=== PATIENT | male | born 1970 | race Hispanic/Latino ===

== ENCOUNTER 2025-01-29 15:47 | Inpatient (IN) | payer SELFPAY ==
[~2025-01-29] VITALS: Ht 185.4 cm; Wt 79.6 kg
--- NOTE | 2025-01-29 16:44 | ERN ---
General Chief Complaint: Wound Check Stated Complaint: BLOODY INJURY TO TOE Time Seen by MD: 15:54 Source: patient History of Present Illness Initial Comments Patient is a 54-year-old gentleman coming in complaining of right foot great toe wound. Per patient he has a history of diabetes coming in for further evaluation of right toe pain. Along with the pain patient has been having inflammation and drainage to that toe. Allergies: Coded Allergies: No Known Allergies (Unverified Allergy, Unknown, 01/29/25) Past Medical History Past Medical History: Diabetes-Type II, High Cholesterol, Hypertension Medical History Other: NON COMPLIANT W/ MEDS Past Surgical History: None Surgical History Other: TOE AMPUTATION ROS Dictation CONSTITUTIONAL: No chills, no fever, no weakness, no diaphoresis, no malaise. HEAD/FACE: No signs of trauma. EENT: No eye pain, no blurred vision, no tearing, no double vision, no ear pain, no ear discharge, no nose pain, no nasal congestion, no throat pain, no throat swelling, no mouth pain. RESPIRATORY: No cough, no orthopnea, no SOB, no stridor, no wheezing. CARDIOVASCULAR: No chest pain, no edema, no palpitations, no syncope. GASTROINTESTINAL/ABDOMINAL: No abdominal pain, no constipation, no diarrhea, no nausea, no vomiting. GENITOURINARY: No abnormal discharge, no dysuria, no frequent urination, no hematuria. No complaints of pain in the genitals. MUSCULOSKELETAL: No back pain, no gout, no joint pain, no joint swelling, no muscle pain, no muscle stiffness, no neck pain. INTEGUMENTARY: No change in color, no change in hair/nails, no dryness, no lesion, no lumps, no rash. NEUROLOGICAL/PSYCH: No anxiety, not depressed, no emotional problem, no headache, no numbness, no pre-existing deficit, no history of seizures, no tremors, no weakness. HEMATOLOGIC/LYMPHATIC: Not anemic, no history of blood clots, no apparent bleeding, no bruising, glands not swollen. All Systems Negative, Except as Noted. Physical Exam Physical Exam Dictation VITAL SIGNS: Reviewed. GENERAL APPEARANCE: Alert, oriented x3, no acute distress, obese. HEAD AND FACE: Non-traumatic. EYES: PERRL, pink conjunctivas, eyelid no trauma, anterior chamber clear. EARS: Pinnas intact and no signs of trauma or erythema. Ear canals clear and no discharge. TMs no erythema. NOSE: No discharge, no bleeding. OROPHARYNX: Mouth normal, teeth no caries, tongue pink. Pharynx clear, no erythema. Tonsils no exudates, no abscesses noted. Mucous membrane moist. NECK: Supple, non-tender, no thyromegaly, no masses, no JVD, no bruits. BREAST: Deferred. CHEST: No tenderness, no crepitus, no paradoxical movement, no retractions. LUNGS: Clear, well-ventilated, symmetric, no rales, no wheezing, no rhonchi, no stridor, good breath sounds bilaterally. HEART: Regular rate, regular rhythm, no murmur, no gallops. VASCULAR: No peripheral edema. ABDOMEN: Soft, positive bowel sounds, nondistended, no guarding, nontender, no rebound, no masses no hepatomegaly, no splenomegaly, no Ramos's sign, no hernias. RECTAL: Deferred. GENITAL: Deferred. NEUROLOGICAL: Normal speech, gross motor function intact, gross sensory function intact. MUSCULOSKELETAL: Neck nontender, full range of motion, back nontender, full range of motion. EXTREMITIES: Nontender, full range of motion. SKIN: Color pink, dry, no turgor, no rash, no lacerations, no abrasions, no contusions. LYMPHATICS: Deferred. Results Laboratory and Microbiology Lab and Micro Result Laboratory Tests Test 01/29/25 16:55 White Blood Count 14.4 K/uL (4.8-10.8) H Red Blood Count 4.06 MIL/uL (4.50-6.20) L Hemoglobin 12.3 g/dL (14.0-18.0) L Hematocrit 35.0 % (42-54) L Mean Corpuscular Volume 86.2 fL (79-99) Mean Corpuscular Hemoglobin 30.3 pg (27.0-33.0) Mean Corpuscular Hemoglobin Concent 35.1 g/dL (32.0-36.0) Red Cell Distribution Width 12.6 % (11.0-15.5) Platelet Count 470 K/uL (130-400) H Mean Platelet Volume 10.1 fL (7.5-10.5) Immature Granulocyte % (Auto) 0.7 % (0-1) Neutrophils (%) (Auto) 71.1 % (40.0-77.0) Lymphocytes (%) (Auto) 18.2 % (21.0-51.0) L Monocytes (%) (Auto) 8.2 % (3.0-13.0) Eosinophils (%) (Auto) 1.0 % (0.0-8.0) Basophils (%) (Auto) 0.8 % (0.0-5.0) Neutrophils # (Auto) 10.2 K/uL (1.8-7.7) H Lymphocytes # (Auto) 2.6 K/uL (1.0-4.8) Monocytes # (Auto) 1.2 K/uL (0.1-1.0) H Eosinophils # (Auto) 0.15 K/uL (0.00-0.70) Basophils # (Auto) 0.12 K/uL (0.00-0.20) Absolute Immature Granulocyte (auto 0.10 K/uL (0-1) Nucleated Red Blood Cells 0.0 % (0.0-0.19) Labs Reviewed?: Yes EKG/XRAY/US/CT/MRI X-RAY Comment X-ray right great toe-NAD MDM MDM: Differential diagnosis: Osteomyelitis of the right great toe, cellulitis, history of diabetes mellitus Rationale: Tests considered and ordered secondary to shared decision making include: labs, ECG and radiology Previous outside records reviewed: Old ER visits. Risk of complication and/or morbidity or mortality of patient management: None Medications-Per medication reconciliation Need for hospitalization: Patient does meet criteria for hospitalization. Need for emergency major/minor surgery: No There are no social concerns with this patient. Prescription drug management Prescriptions will include symptomatic care Patient's prior external medical records from other ER visits were reviewed by me as indicated. Prior testing and results from previous visits were reviewed. Prior tests were taken into account with medical decision making and resource utilization, independent historian/historians were used to obtain complete medical history. I independently interpreted the test that were performed, results were reviewed by me and considered findings on radiology if ordered. Medical management and examination interpretation discussions were had by me with other qualified healthcare professionals as indicated for the patient's care. Patient is a 54-year-old gentleman coming in to be evaluated for right great toe infection. Patient is a diabetic. Due to the infection in the right great toe in his history patient will be admitted under the care of hospitalist group for ongoing treatment. ED Course Orders Procedure Category Date Status Time Cbc With Differential LAB 01/29/25 In Process 16:28 Urinalysis Profile LAB 01/29/25 Logged 16:28 Basic Metabolic Panel LAB 01/29/25 In Process 16:28 Toe(S) 2+Vws Rt RAD 01/29/25 Taken 16:28 Erythrocyte LAB 01/29/25 In Process Sedimentation Rate 16:28 Vancomycin 1g/250ml PHA 01/29/25 In Process Kit (Vancomycin 1g/2 17:30 Zosyn 3.375gm+Ns 50ml PHA 01/29/25 In Process (Zosyn 3.375gm+Ns 21:00 Aerobic Culture TISHA 01/29/25 Logged 17:17 Anaerobic Culture TISHA 01/29/25 Logged 17:17 Current Medications Medications (Trade) Dose Ordered Sig/Eva Route PRN Reason Start Time Stop Time Status Last Admin Dose Admin Piperacillin Sod/ Tazobactam Sod (Zosyn 3.375gm+NS 50ml) 3.375 gm ZOSY12 IV 01/29/25 21:00 02/08/25 20:59 Vancomycin HCl (Vancomycin 1g/ 250ml Kit) 1 gm ONCE IV 01/29/25 17:30 01/29/25 23:59 Vital Signs Date Time Temp Pulse Resp B/P (MAP) Pulse Ox O2 Delivery O2 Flow Rate FiO2 01/29/25 15:53 98.4 87 16 175/96 97 Room Air 0 DX & DISP Disposition: Inpatient Decision to Admit Time: 17:38 Departure Impression: Primary Impression: Osteomyelitis of great toe of right foot Additional Impressions: Cellulitis, Diabetes mellitus Condition: Stable Referrals: SELF,REFERRAL (PCP) DANIEL WILKINS MD Jan 29, 2025 16:44
[2025-01-29 17:06] LABS: BASOPHILS # (AUTO) 0.12 K/uL (0.00-0.20); BASOPHILS % (AUTO) 0.8 % (0.0-5.0); EOSINOPHILS # (AUTO) 0.15 K/uL (0.00-0.70); LYMPHOCYTES # (AUTO) 2.6 K/uL (1.0-4.8); LYMPHOCYTES % (AUTO) 18.2 % (21.0-51.0); MEAN CORPUSCULAR HEMOGLOBIN 30.3 pg (27.0-33.0); MEAN CORPUSCULAR HGB CONC 35.1 g/dL (32.0-36.0); MEAN CORPUSCULAR VOLUME 86.2 fL (79-99); MONOCYTES # (AUTO) 1.2 K/uL (0.1-1.0); MONOCYTES % (AUTO) 8.2 % (3.0-13.0); NEUTROPHILS # (AUTO) 10.2 K/uL (1.8-7.7); NEUTROPHILS % (AUTO) 71.1 % (40.0-77.0); PLATELET COUNT (AUTO) 470 K/uL (130-400); RED BLOOD CELL COUNT(AUTO) 4.06 MIL/uL (4.50-6.20); RED CELL DISTRIBUTION WIDTH 12.6 % (11.0-15.5); WHITE BLOOD COUNT (AUTO) 14.4 K/uL (4.8-10.8)
[2025-01-29 17:32] LABS: CREATININE 1.4 mg/dL (0.5-1.3); POTASSIUM 3.4 mmol/L (3.5-5.1)
[2025-01-29] MEDS ORDERED: MAG/ALUM/SIMETH 30 ML UDCUP PO PRN (18:00)
[2025-01-29] MEDS ORDERED: acetaMINOPHEN 325 MG TAB PO PRN ×3 (18:00)
[2025-01-29] MEDS ORDERED: PoTASSium chloRIDE 20MEQ/100ML 100 ML IV PRN (18:00)
[2025-01-29] MEDS: VANCOMYCIN 1G/250ML KIT 250 ML IV SCH (18:00)
[2025-01-29] MEDS ORDERED: DiphenhydrAMINE HCL 50 MG/ML VIAL IV PRN (18:00)
[2025-01-29] MEDS ORDERED: ZOLPidem TARTrate 5 MG TAB PO PRN (18:00)
[2025-01-29] MEDS ORDERED: GLUCAGON 1MG KIT 1 MG ML IM PRN ×2 (18:00→20:00)
[2025-01-29] MEDS ORDERED: DEXTROSE 50%-WATER 50 ML DISP.SYRIN IV PRN ×2 (18:00→20:00)
[2025-01-29] MEDS ORDERED: NITROGLYCERIN 0.4 MG SL TAB SL PRN (18:00)
[2025-01-29] MEDS ORDERED: LACTULOSE 20 GM/30 ML UDCUP PO PRN (18:00)
[2025-01-29] MEDS ORDERED: guaiFENesin-DM 200/20MG 10ML PO PRN (18:00)
[2025-01-29] MEDS ORDERED: FAMOTIDINE 20MG VIAL IV PRN (18:00)
[2025-01-29] MEDS ORDERED: ondanSETRON 4MG INJ IV PRN (18:00)
[2025-01-29] MEDS ORDERED: PoTASSium chl 10% ELIXIR 20MEQ 20 MEQ/15 ML UDCUP PO PRN (18:00)
[2025-01-29 18:17] LABS: ERYTHROCYTE SEDIMENTATION RATE 112 MM/HR (0-20)
--- NOTE | 2025-01-29 18:20 | NUR ---
PT JUST PLACED IN ED BED 2 FROM WAITING ROOM
--- NOTE | 2025-01-29 18:44 | HP ---
[facility] HISTORY AND PHYSICAL Date of Service: Jan 29, 2025 Time of Service: 18:44 PCP: Self-referral HISTORY OF PRESENT ILLNESS: This is a 54-year-old male with past medical history of diabetes, high cholesterol ,hypertension and non medical compliance who presents to the ED for complaints of right great toe open wound which started 3 days ago.As per patient it started to inflame at the side of his toe nail and he was applying Neosporin ointment for 2 days and today when he uncovered it he was so surprised to notice that it is draining pus,red and inflamed and his foot started to swell.Patient reports he has not been taking any medications for almost 8 months now and he has not been to a doctor as well.Patient denies any trauma,injury or insect bite on his right great toe.Patient also reports he has history of right great toe partial amputation. Seen and examined patient in the ER awake,alert and coerent.Patient denies pain at this time.Patient denies fever,chills,nausea and vomiting. Vital signs temperature 98.4, heart rate 87, blood pressure 175/96 saturation 97% on room air. Labs: WBC 14 , neutrophils 71, hemoglobin 12, hematocrit 35 platelet count 470. Sodium 135, potassium 3.4, chloride 98, BUN 19, creatinine 1.4, GFR 60 glucose 486. Venous Doppler bilateral lower extremities result revealed no evidence of DVT. Chest x-ray result revealed mild bilateral pulmonary infiltrates are seen may be related to mild pulmonary vascular congestion with possible superimposed pneumonitis. Arterial Doppler to bilateral lower extremities result revealed atherosclerotic disease. Abnormal monophasic arterial waveforms are seen in the bilateral posterior tibial and right anterior tibia and dorsalis pedal arteries. X-ray of the right revealed there is no acute displaced fracture or dislocation. There is soft tissue swelling evaluation for osteomyelitis is limited with radiographs. Degenerative changes are seen. We will admit patient for further medical management. REVIEW OF SYSTEMS CONSTITUTIONAL: Denies fevers, chills, or night sweats. No unintentional weight loss reported. NEUROLOGICAL: Denies headache, amaurosis fugax, motor weakness, sensory deficit, vertigo/spinning sensation, gait abnormalities, or tremors. ENT: No hearing loss, otalgia, otorrhea, rhinitis, rhinorrhea, hoarseness, or sore throat. CARDIOVASCULAR: Denies any exertional angina, dyspnea on exertion, orthopnea, paroxysmal nocturnal dyspnea, palpitations, life-threatening arrhythmias, claudication. PULMONARY: Denies any shortness of breath, cough, phlegm/sputum, hemoptysis, pleuritic chest pain. SLEEP: Denies morning headaches, daytime somnolence or napping. Denies difficulty falling asleep, staying asleep, waking from sleep. Denies knowledge of snoring. GASTROINTESTINAL: Denies any type of dysphagia to either liquids or solids. Denies nausea, vomiting, pyrosis, early satiety, abdominal pain, diarrhea, constipation, or changes in stool consistency or caliber. Denies coffee-ground e mesis, hematemesis, hematochezia, or melanotic stools. GENITOURINARY: Denies frequency, urgency, nocturia, hematuria or incontinence (Storage/Irritative symptoms.) Low urinary stream, straining to void, urinary intermittency or hesitancy, splitting of the voiding stream, terminal dribbling. ENDOCRINOLOGIC: Denies polyuria, polydipsia, polyphagia or heat/cold intolerances. HEMATOLOGIC: Denies thrombophilia/previous clots, or coagulopathy/bleeding disorders. ONCOLOGIC: Denies personal history of malignancy. DERMATOLOGIC: Denies rashes or pruritus. PSYCHIATRIC: Denies any suicidal or homicidal ideation. Denies hallucinations. PAST MEDICAL HISTORY: [ Diabetes, hyperlipidemia, hypertension and medical noncompliance ] PAST SURGICAL HISTORY: [Left great toe partial amputation ] PAST SOCIAL HISTORY: [Patient lives alone. Patient admits to smoking four cigarettes per day and using cocaine last use one week ago patient denies and marijuana use ] FAMILY HISTORY: [ Noncontributory ] Coded Allergies: No Known Allergies (Unverified Allergy, Unknown, 01/29/25) PHYSICAL EXAM GENERAL APPEARANCE: The patient is awake, alert, and oriented, in no acute cardiopulmonary distress. NEUROLOGICAL: Cranial nerves II-XII grossly intact. Motor is 5/5 in bilateral upper and lower extremities proximal to distal. No sensory deficits. HEENT: Face is symmetric. Pupils are equal and reactive. Extraocular movements are intact. NECK: Supple. No JVD. No thyromegaly. No submental, submandibular, pre- /postauricular, occipital or supraclavicular lymphadenopathy. CHEST: Normal chest expansion. No Telemetry. LUNGS: Absence of any rales, rhonchi or any wheezing. CARDIOVASCULAR: Regular. S1 and S2 normal. No appreciable rubs, murmurs or gallops. ABDOMEN: Soft, nontender, and nondistended. There is no rebound, voluntary guarding, or rigidity. : Deferred. No Pinedo. EXTREMITIES: Edema to right foot No clubbing. Good capillary refill. SKIN: Open wound ulcer to right great toe Vital Sign (Last 24 Hours) 01/29/25 15:53 Temp 98.4 Pulse 87 Resp 16 B/P (MAP) 175/96 Pulse Ox 97 O2 Delivery Room Air O2 Flow Rate 0 LABS: Laboratory: Test 01/29/25 16:55 Range/Units White Blood Count 14.4 H 4.8-10.8 K/uL Red Blood Count 4.06 L 4.50-6.20 MIL/uL Hemoglobin 12.3 L 14.0-18.0 g/dL Hematocrit 35.0 L 42-54 % Mean Corpuscular Volume 86.2 79-99 fL Mean Corpuscular Hemoglobin 30.3 27.0-33.0 pg Mean Corpuscular Hemoglobin Concent 35.1 32.0-36.0 g/dL Red Cell Distribution Width 12.6 11.0-15.5 % Platelet Count 470 H 130-400 K/uL Mean Platelet Volume 10.1 7.5-10.5 fL Immature Granulocyte % (Auto) 0.7 0-1 % Neutrophils (%) (Auto) 71.1 40.0-77.0 % Lymphocytes (%) (Auto) 18.2 L 21.0-51.0 % Monocytes (%) (Auto) 8.2 3.0-13.0 % Eosinophils (%) (Auto) 1.0 0.0-8.0 % Basophils (%) (Auto) 0.8 0.0-5.0 % Neutrophils # (Auto) 10.2 H 1.8-7.7 K/uL Lymphocytes # (Auto) 2.6 1.0-4.8 K/uL Monocytes # (Auto) 1.2 H 0.1-1.0 K/uL Eosinophils # (Auto) 0.15 0.00-0.70 K/uL Basophils # (Auto) 0.12 0.00-0.20 K/uL Absolute Immature Granulocyte (auto 0.10 0-1 K/uL Nucleated Red Blood Cells 0.0 0.0-0.19 % Erythrocyte Sedimentation Rate 112 H 0-20 MM/HR Sodium Level 135 L 136-145 mmol/L Potassium Level 3.4 L 3.5-5.1 mmol/L Chloride Level 98 L 101-111 mmol/L Carbon Dioxide Level 32 21-32 mmol/L Blood Urea Nitrogen 19 H 7-18 mg/dL Creatinine 1.4 H 0.5-1.3 mg/dL Glomerular Filtration Rate Calc 60 >90 mL/min Random Glucose 486 *H 70-105 mg/dL Total Calcium 8.6 8.5-10.1 mg/dL Current Medications Medications (Trade) Dose Ordered Sig/Eva Route PRN Reason Start Time Stop Time Status Last Admin Dose Admin Acetaminophen (TYLenol 325MG TAB) 650 mg Q4H PRN PO MILD PAIN (1-3) 01/29/25 18:00 02/28/25 17:59 Acetaminophen (TYLenol 325MG TAB) 650 mg Q6H PRN PO MILD PAIN (1-3) 01/29/25 18:00 02/28/25 17:59 Acetaminophen (TYLenol 325MG TAB) 650 mg Q6H PRN PO TEMPERATURE GREATER THAN 101.5 01/29/25 18:00 02/28/25 17:59 Al Hydroxide/Mg Hydroxide (MAALox PLUS 30ML) 30 ml Q6H PRN PO INDIGESTION 01/29/25 18:00 02/28/25 17:59 Dextrose (D50w) 50 ml AD PRN IV HYPOGLYCEMIA PROTOCOL 01/29/25 18:00 02/28/25 17:59 Diphenhydramine HCl (BENAdryl INJ) 25 mg Q6H PRN IV SEVERE ITCHING/RASH 01/29/25 18:00 02/28/25 17:59 Famotidine (Pepcid 20mg Vial) 20 mg BID IV 01/29/25 21:00 02/28/25 20:59 Famotidine (Pepcid 20mg Vial) 20 mg BID PRN IV NAUSEA/VOMITING 01/29/25 18:00 02/28/25 17:59 Glucagon (Glucagon 1mg Kit) 1 mg AD PRN IM HYPOGLYCEMIA PROTOCOL 01/29/25 18:00 02/28/25 17:59 Guaifenesin/ Dextromethorphan (RobiTUSSin DM 200/20MG 10ML) 10 ml Q4H PRN PO COUGH 01/29/25 18:00 02/28/25 17:59 Heparin Sodium (Porcine) (HEParin 5,000 UNIT VIAL) 5,000 unit BID SQ 01/29/25 21:00 02/28/25 20:59 Hydralazine HCl (APRESOLine 20MG INJ) 10 mg Q6H PRN IV For:SBP above 160;DBP above 90 01/29/25 18:00 02/28/25 17:59 Insulin Human Regular (humuLIN R 100 UNIT/ML 3ML) INSULIN SLIDING SCAL... ACHS SQ 01/29/25 21:00 02/28/25 20:59 Ketorolac Tromethamine (toRADol) 15 mg Q8H PRN IV MODERATE PAIN (4-6) 01/29/25 18:00 02/03/25 17:59 Lactulose (Constulose 20gm/ 30ml Udcup) 20 gm BID PRN PO CONSTIPATION 01/29/25 18:00 02/28/25 17:59 Magnesium Sulfate 50 ml @ 0 mls/hr PROTOCOL PRN IV OTHER [SEE ORDER COMMENTS] 01/29/25 18:00 02/28/25 17:59 Morphine Sulfate (morPHINE 2MG SYG) 1 mg Q4H PRN IVP SEVERE PAIN (7-10) 01/29/25 18:00 02/05/25 17:59 Nitroglycerin (Nitrostat) 0.4 mg PROTOCOL PRN SL CHEST PAIN 01/29/25 18:00 02/28/25 17:59 Ondansetron HCl (zoFRAN 4MG INJ) 4 mg Q6H PRN IV NAUSEA/VOMITING 01/29/25 18:00 02/28/25 17:59 Oxycodone/ Acetaminophen (perCOCET) 1 tab Q6H PRN PO SEVERE PAIN (7-10) 01/29/25 18:00 02/05/25 17:59 Piperacillin Sod/ Tazobactam Sod 50 ml @ 12.5 mls/hr ZOSY8 IV 01/29/25 21:00 02/08/25 20:59 Piperacillin Sod/ Tazobactam Sod (Zosyn 3.375gm+NS 50ml) 3.375 gm ZOSY12 IV 01/29/25 21:00 02/08/25 20:59 Potassium Chloride 100 ml @ 100 mls/hr AD PRN IV POTASSIUM PROTOCOL 01/29/25 18:00 02/28/25 17:59 Potassium Chloride (K-Dur/Klor-Con 20meq) 20 meq AD PRN PO POTASSIUM PROTOCOL 01/29/25 18:00 02/28/25 17:59 Potassium Chloride (KCl 10% Elixir 20meq/15ml) 20 meq AD PRN PO POTASSIUM PROTOCOL 01/29/25 18:00 02/28/25 17:59 Sodium Chloride 1,000 ml @ 0 mls/hr ONCE IV 01/29/25 18:00 01/30/25 17:59 Vancomycin HCl 250 ml @ 125 mls/hr ONCE IV 01/29/25 18:00 01/29/25 19:59 Vancomycin HCl (Vancomycin 1g/ 250ml Kit) 1 gm ONCE IV 01/29/25 17:30 01/29/25 23:59 Zolpidem Tartrate (AmbIEN) 5 mg HS PRN PO INSOMNIA 01/29/25 18:00 02/28/25 17:59 DIAGNOSTICS / RADIOLOGY: [ ] ASSESSMENT: Right great toe cellulitis versus osteomyelitis POA Infected right great toe wound ulcer POA Uncontrolled hypertension POA Hyperglycemia secondary to uncontrolled diabetes POA Acute thrombocytosis POA Normocytic normochromic anemia POA Pseudohyponatremia due to hyperglycemia POA Acute kidney injury POA Hypokalemia POA Nicotine dependence POA Positive cocaine use POA Medical noncompliance POA Hyperlipidemia POA PLAN: We will admit patient in medical surgical floor We will start on heart healthy diet We will start on Zosyn IV and vancomycin IV for empiric coverage We will start on heparin 5000 subQ b.i.d. for DVT prophylaxis We will start on Famotidine 20 mg IV bid for GI prophylaxis We will replace electrolytes as needed per protocol Counseled on cigarette and cocaine use cessation We will request physical therapy service for eval and treat We will seek podiatry consultation We will follow up urine and wound culture We will start on insulin sliding scale AC & HS with hypoglycemia protocol We will add prn medication for fever,pain,cough , elevated BP nausea and vomiting We will request labs in am Further orders to follow depending on above results Case discussed with attending physician and came up with above treatment and plan of care. ADVANCED CARE PLANNING 1. Which of the following were discussed? Hospice Care - No Therapeutic options - Yes Advance Directives - No Other discussions - 2. Discussed with who? Patient 3. Voluntary nature of this service was explained to the patient? Yes 4. Amount of time spent - __20 5. Reviewed by Physician? (if this service was performed by NPP) Yes Patient seen and examined by me. Agree with note by PHARMACEUTICAL WORKER SEE ADDITIONAL ORDERS PER CHART DISCUSSED WITH NURSING STAFF [facility] Jan 29, 2025 18:44
--- NOTE | 2025-01-29 18:49 | HMCIMG ---
US VENOUS DOPPLER BILATERAL HISTORY: Leg swelling COMPARISON: None TECHNIQUE: Bilateral lower extremity venous Doppler ultrasound study was performed. FINDINGS: The common femoral, femoral, popliteal, and posterior tibial veins are visualized. Normal flow with augmentation and compressibilities are demonstrated. The greater saphenous veins are also seen and grossly patent. There are bilateral inguinal lymph nodes with the largest in the right measured 4.6 cm on the left measuring 3.3 cm. IMPRESSION: 1. No evidence of deep venous thrombosis is seen.
--- NOTE | 2025-01-29 19:31 | HMCIMG ---
TOE(S) 2+VWS RT HISTORY: Osteo COMPARISON: None TECHNIQUE: 3 images of the right great toe were obtained. FINDINGS: There is no acute displaced fracture or dislocation. There is soft tissue swelling. Evaluation for osteomyelitis is limited with radiographs. Degenerative changes are seen. IMPRESSION: 1. Findings as described above.
--- NOTE | 2025-01-29 19:38 | HMCIMG ---
US ARTERIAL BILAT LOW EXT DUPL HISTORY: Leg pain COMPARISON: None TECHNIQUE: Bilateral lower extremity arterial Doppler ultrasound study was performed. FINDINGS: Normal triphasic and biphasic arterial waveforms are noted in the common femoral, deep femoral, superficial femoral, popliteal arteries. Abnormal monophasic arterial waveforms are seen in the bilateral posterior tibial and right anterior tibia and dorsalis pedal arteries with hyperemic flow. Biphasic arterial waveform is seen in the left anterior tibial and dorsalis pedal arteries. On the right, the peak systolic velocity of the common femoral artery is 114 cm/s, the proximal femoral artery is 117 cm/s, the mid femoral artery is 134 cm/s, the distal femoral artery is 141 cm/s, the proximal popliteal artery is 158 cm/s, the distal popliteal artery is 140 cm/s, the anterior tibial artery is 112 cm/s, the posterior tibial artery artery is 141 cm/s,and the dorsalis pedal artery is 146 cm/s. IMPRESSION: 1. Atherosclerotic disease. 2. Abnormal monophasic arterial waveforms are seen in the bilateral posterior tibial and right anterior tibia and dorsalis pedal arteries with hyperemic flow.
--- NOTE | 2025-01-29 19:39 | HMCIMG ---
CHEST 1VW HISTORY: Congestion COMPARISON: None FINDINGS: A frontal projection of the chest was obtained. Mild bilateral pulmonary infiltrates are seen may be related to mild pulmonary vascular congestion with possible superimposed pneumonitis. The heart is borderline enlarged. Degenerative changes are seen. Aortic calcifications are seen. IMPRESSION: 1. Mild bilateral pulmonary infiltrates are seen may be related to mild pulmonary vascular congestion with possible superimposed pneumonitis.
[2025-01-29] MEDS: VANCOMYCIN KIT 1 GM/250 ML IV.KIT IV SCH (20:20)
[2025-01-29] MEDS: oxyCODONE/aceTAMIN 5/325MG TAB PO PRN (20:27)
[2025-01-29] MEDS: FAMOTIDINE 20MG VIAL IV SCH (20:27)
[2025-01-29] MEDS: HEParin 5,000 UNIT VIAL SQ SCH (20:27)
[2025-01-29] MEDS: 0.9%NACL 1000ML 1,000 ML IV SCH (20:28)
[2025-01-29 20:42] LABS: INFLUENZA TYPE A Negative For Type A (NEGATIVE); INFLUENZA TYPE B Negative For Type B (NEGATIVE)
[2025-01-29 20:52] LABS: APPEARANCE,URINE CLEAR (CLEAR); BILIRUBIN,URINE NEGATIVE (NEGATIVE); COLOR,URINE COLORLESS (YELLOW); GLUCOSE, URINE (UA) >=1000 mg/dL (NEGATIVE); KETONES,URINE NEGATIVE (NEGATIVE); LEUKOCYTE ESTERASE ,URINE NEGATIVE Leu/uL (NEGATIVE); NITRATE,URINE NEGATIVE (NEGATIVE); OCCULT BLOOD,URINE SMALL (NEGATIVE); PROTEIN,URINE 200 mg/dL (NEGATIVE); SQUAMOUS EPITHELIAL CELL,UR RARE /HPF (0-2); UROBILINOGEN,URINE 0.2 mg/dL (0.2-1.0); WBC,URINE 0-1 /HPF (0-1)
[2025-01-29] MEDS: INSULIN humuLIN R 100 UNIT/ML 3ML SQ SCH ×2 (21:00→21:21)
[2025-01-29] MEDS: ZOSYN 3.375GM+NS 50ML 50 ML IV SCH (21:00)
[2025-01-29] MEDS: INSULIN humuLIN R 100 UNIT/ML 3ML IV ONE (21:20)
[2025-01-29] MEDS: ZOSYN 3.375GM +NS 50ML IV SCH (21:22)
[2025-01-29] MEDS: morPHINE 2 MG SYG IVP PRN (22:25)
[2025-01-30] VITALS (7 sets, daily range): BP systolic 137–184; BP diastolic 94–106; PULSE 65–85; RESP 18–20; TEMP 97.7–98.2; O2SAT 98–100
[2025-01-30] MEDS: ketOROlac 15MG/ML VIAL (15MG/ML) IV PRN (01:27)
[2025-01-30 06:43] LABS: BASOPHILS # (AUTO) 0.11 K/uL (0.00-0.20); BASOPHILS % (AUTO) 0.9 % (0.0-5.0); EOSINOPHILS # (AUTO) 0.18 K/uL (0.00-0.70); EOSINOPHILS % (AUTO) 1.5 % (0.0-8.0); HEMATOCRIT 35.6 % (42-54); IMMATURE GRANULOCYTE ABSOLUTE 0.12 K/uL (0-1); LYMPHOCYTES # (AUTO) 2.2 K/uL (1.0-4.8); LYMPHOCYTES % (AUTO) 17.5 % (21.0-51.0); MEAN CORPUSCULAR HEMOGLOBIN 30.5 pg (27.0-33.0); MEAN CORPUSCULAR HGB CONC 34.8 g/dL (32.0-36.0); MEAN CORPUSCULAR VOLUME 87.5 fL (79-99); MONOCYTES # (AUTO) 0.8 K/uL (0.1-1.0); MONOCYTES % (AUTO) 6.4 % (3.0-13.0); NEUTROPHILS % (AUTO) 72.7 % (40.0-77.0); PLATELET COUNT (AUTO) 393 K/uL (130-400); RED BLOOD CELL COUNT(AUTO) 4.07 MIL/uL (4.50-6.20); RED CELL DISTRIBUTION WIDTH 12.6 % (11.0-15.5); WHITE BLOOD COUNT (AUTO) 12.3 K/uL (4.8-10.8)
[2025-01-30 06:46] LABS: HEMOGLOBIN A1C 11.8 % (4.0-6.0)
[2025-01-30 06:51] LABS: ALBUMIN 1.4 g/dL (3.5-5.0); BILIRUBIN,DIRECT 0.1 mg/dL (0.0-0.3); BILIRUBIN,TOTAL 0.2 mg/dL (0.2-1.0); CREATININE 1.1 mg/dL (0.5-1.3); MAGNESIUM 1.5 mg/dL (1.80-2.40); POTASSIUM 3.3 mmol/L (3.5-5.1); TOTAL PROTEIN, SERUM 5.8 g/dL (6.0-8.3)
--- NOTE | 2025-01-30 07:03 | NUR ---
DR PABLO IN ROOM TO SEE PATIENT
--- NOTE | 2025-01-30 07:24 | CONS ---
CONSULTATION NOTE Date of Service: Jan 30, 2025 Reason for Consultation: This 54 years old male was seen in consultation courtesy of Dr. Gregory for evaluation of diabetic foot infection hallux ulceration right foot. Requesting Physician:Colt HISTORY OF PRESENT ILLNESS: This 54 years old male apparently developed an ulceration to the great toe right foot the patient stated that he has been doing care for himself at home he does not have an outpatient medical doctor he has a history of diabetes he has history of previous left hallux amputation does not have means for medical care and poor compliance medically spence. REVIEW OF SYSTEMS CONSTITUTIONAL: Denies fever, chills, or fatigue. HEAD/FACE: No signs of trauma. EENT: Denies eye pain, blurred vision, double vision, or light sensitivity. RESPIRATORY: Denies shortness of breath, cough and wheezing most likely superimposed pneumonia. CARDIOVASCULAR: Denies chest pain, palpitation, syncope GASTROINTESTINAL/ABDOMINAL: Denies abdominal pain, constipation, diarrhea, nausea or vomiting GENITOURINARY: Denies dysuria or hematuria. MUSCULOSKELETAL: Denies joint pain, tenderness, or trauma. INTEGUMENTARY: Ulcer cellulitis and infection of the great toe right foot. NEUROLOGICAL/PSYCH: Denies anxiety, depression, heat or cold intolerance. PAST MEDICAL HISTORY: Diabetes PAST SURGICAL HISTORY: Amputation of left hallux PAST SOCIAL HISTORY: Patient admits for smoking four cigarettes a day the use of cocaine and marijua na. FAMILY HISTORY: [ ] Noncontributory Coded Allergies: No Known Allergies (Unverified Allergy, Unknown, 01/29/25) PHYSICAL EXAM EYES: Anicteric. Pupils equal and reactive. HENT: No oral thrush seen, moist Oral mucosa NECK: Supple, no JVD or thyromegaly. LUNGS: Coughing and wheezing congested. CARDIOVASCULAR: S1, S2 regular. No murmur heard. ABDOMEN: Soft, non tender, bowel sounds present, no organomegaly CENTRAL NERVOUS SYSTEM: Awake, alert, oriented x 3. No focal deficits. SKIN: Ulcer and infection on the great toe right foot cellulitis to the right lower extremity.. LYMPHATICS: No peripheral lymphadenopathy MUSCULOSKELETAL: No joint swelling, erythema or tenderness. EXTREMITIES: No cyanosis or clubbing BACK: No deformity, no pressure ulcer. GENITOURINARY: No dysuria or hematuria Vital Sign (Last 24 Hours) 01/30/25 03:33 Temp 98.4 Pulse 90 Resp 18 B/P (MAP) 128/75 Pulse Ox 96 O2 Delivery Room Air* O2 Flow Rate 0 FiO2 21 Intake & Output (last 24hrs) 0 01/29/25 01/29/25 01/30/25 15:00 23:00 07:00 Intake Total 1290.0 ml Output Total 1500 ml 500 ml Balance -210.0 ml -500 ml LABS: Laboratory: Test 01/30/25 06:04 01/30/25 04:42 01/29/25 20:35 01/29/25 20:15 Range/Units White Blood Count 12.3 H 4.8-10.8 K/uL Red Blood Count 4.07 L 4.50-6.20 MIL/uL Hemoglobin 12.4 L 14.0-18.0 g/dL Hematocrit 35.6 L 42-54 % Mean Corpuscular Volume 87.5 79-99 fL Mean Corpuscular Hemoglobin 30.5 27.0-33.0 pg Mean Corpuscular Hemoglobin Concent 34.8 32.0-36.0 g/dL Red Cell Distribution Width 12.6 11.0-15.5 % Platelet Count 393 130-400 K/uL Mean Platelet Volume 10.3 7.5-10.5 fL Immature Granulocyte % (Auto) 1.0 0-1 % Neutrophils (%) (Auto) 72.7 40.0-77.0 % Lymphocytes (%) (Auto) 17.5 L 21.0-51.0 % Monocytes (%) (Auto) 6.4 3.0-13.0 % Eosinophils (%) (Auto) 1.5 0.0-8.0 % Basophils (%) (Auto) 0.9 0.0-5.0 % Neutrophils # (Auto) 9.0 H 1.8-7.7 K/uL Lymphocytes # (Auto) 2.2 1.0-4.8 K/uL Monocytes # (Auto) 0.8 0.1-1.0 K/uL Eosinophils # (Auto) 0.18 0.00-0.70 K/uL Basophils # (Auto) 0.11 0.00-0.20 K/uL Absolute Immature Granulocyte (auto 0.12 0-1 K/uL Nucleated Red Blood Cells 0.0 0.0-0.19 % Sodium Level 141 136-145 mmol/L Potassium Level 3.3 L 3.5-5.1 mmol/L Chloride Level 105 101-111 mmol/L Carbon Dioxide Level 31 21-32 mmol/L Blood Urea Nitrogen 18 7-18 mg/dL Creatinine 1.1 0.5-1.3 mg/dL Glomerular Filtration Rate Calc 80 >90 mL/min Random Glucose 229 #H 70-105 mg/dL Hemoglobin A1c 11.8 H 4.0-6.0 % Estimated Average Glucose (eAG) 292 H 70-126 mg/dL Lactic Acid Level 1.1 0.8-2.5 mmol/L Total Calcium 8.3 L 8.5-10.1 mg/dL Magnesium Level 1.50 L 1.80-2.40 mg/dL Total Bilirubin 0.2 0.2-1.0 mg/dL Direct Bilirubin 0.1 0.0-0.3 mg/dL Aspartate Amino Transf (AST/SGOT) 7 L 10-37 U/L Alanine Aminotransferase (ALT/SGPT) 15 12-78 U/L Alkaline Phosphatase 89 50-136 U/L Ammonia 40 H 11-32 umol/L Total Creatine Kinase 23 21-232 U/L Total Protein 5.8 L 6.0-8.3 g/dL Albumin 1.4 L 3.5-5.0 g/dL Amylase Level 50 25-115 U/L Lipase 20 16-77 U/L Procalcitonin < 0.05 L 0.05-0.5 ng/mL Whole Blood Glucose 217 #H 70-110 MG/DL Urine Color COLORLESS YELLOW Urine Appearance CLEAR CLEAR Urine pH 7.0 5.0-8.0 Urine Specific [place] 1.008 1.001-1.031 Urine Protein 200 H NEGATIVE mg/dL Urine Glucose (UA) >=1000 H NEGATIVE mg/dL Urine Ketones NEGATIVE NEGATIVE mg/dL Urine Occult Blood SMALL H NEGATIVE Urine Nitrate NEGATIVE NEGATIVE Urine Bilirubin NEGATIVE NEGATIVE mg/dL Urine Urobilinogen 0.2 0.2-1.0 mg/dL Urine Leukocyte Esterase NEGATIVE NEGATIVE Anders/uL Urine RBC 6-10 H 0-1 /HPF Urine WBC 0-1 0-1 /HPF Urine Squamous Epithelial Cells RARE 0-2 /HPF Urine Bacteria None None Seen /HPF Influenza Type A Antigen Negative For Type A NEGATIVE Influenza Type B Antigen Negative For Type B NEGATIVE Test 01/29/25 16:55 Range/Units Erythrocyte Sedimentation Rate 112 H 0-20 MM/HR DIAGNOSTICS / RADIOLOGY: X-rays were noncontributory for bone changes at this point. ASSESSMENT: Diabetic foot infection hallux infection right foot. PLAN: Start local wound care continue IV antibiotic Iodosorb for wound care daily. We will order MRI to rule out osteomyelitis. Patient educated on lifestyle modification. Prognosis is guarded secondary to above-mentioned conditions. Depending on MRI results we will plan further. IVONE PABLO DPM Jan 30, 2025 07:24
[2025-01-30] MEDS: IODOSORB GEL 40GM TP ONE (08:36)
[2025-01-30] MEDS: PoTASSium chloRIDE 20MEQ ER 20 MEQ ERTAB PO PRN (08:40)
[2025-01-30] MEDS: MAGNESIUM 2GM PREMIX 50ML 50 ML IV PRN (08:40)
--- NOTE | 2025-01-30 09:13 | NUR ---
DCP: PENDING Pt is currently homeless. Pt states that he used to live with his father however he passed in May 2024. Pt states that his father had left him some money and he had been using it to pay rent in [place] place [place] of [address] however he ran out of money a month and a half ago. Pt states that he went to [facility] however he was told that they were not accepting anyone at this time. SW offered him other resources for shelters however pt stated that he was not interested because he did not want to go to [place]. At [place] pt states that [facility] Addendum: 01/30/25 at 0917 by ERBEKAH SIMMS SS Amended: Links added.
[2025-01-30] MEDS ORDERED: GADOTERATE MEGLUMINE 10 MMOL/20 ML VIAL IV ONE (10:56)
--- NOTE | 2025-01-30 12:27 | NUR ---
[facility] Consult: Patient assessed by wound healing team. See wound assessment. Assessment and recommendations provided to primary nurse. Education provided. Addendum: 01/31/25 at 1558 by SANTIAGO HAM RN RN/ Amended: Links added.
--- NOTE | 2025-01-30 12:32 | PN ---
[facility] PROGRESS NOTE Date of Service: Jan 30, 2025 Time of Service: 12:26 SUBJECTIVE: HPI Patient is a 54-year-old male with past medical history of diabetes, high cholesterol ,hypertension and medication noncompliance who presents to the ED for complaints of right great toe open wound which started 3 days ago. Patient stated that he noticed redness and swelling of the nail and he started applying Neosporin ointment for about 2 days and when he uncovered it days later, he noticed that it was swollen and was draining pus. Patient reports he has not been taking any medications for almost 8 months now and he has not been to a doctor as well.Patient denies any trauma,injury or insect bite on his right great toe.Patient also reports he has history of right great toe partial amputation. Patient denies pain at this time.Patient denies fever,chills,nausea and vomiting. 01/30/25: Lying in bed at the time of evaluation. Alert and oriented any obvious distress. Denies any fever, chills, nausea, vomiting or pain. Vital signs: T 98.4, P 90, R 18, BP 128/75, 96% on RA. Labs: Sodium 141, potassium 3.3 We will replace as per protocol, glucose 229, hemoglobin A1c 11.8, lactic acid 1.0, ammonia 40, BUN 18 , creatinine 1.1 A venous Doppler showed no evidence of deep venous thrombosis, x-ray of the right foot showed no acute displaced fracture or dislocation and arterial Doppler showed arteriosclerotic disease, abnormal monophasic arterial waveforms in the bilateral posterior tibial arteries, right anterior tibial and dorsalis pedis arteries with hyperemic flow. Consult was placed for Podiatry. Ordered MRI of the foot. Pending results. Patient is currently on Zosyn 3.375g q8hr . REVIEW OF SYSTEMS CONSTITUTIONAL: Denies fevers, chills, or night sweats. No unintentional weight loss reported. NEUROLOGICAL: Denies headache, amaurosis fugax, motor weakness, sensory deficit, vertigo/spinning sensation, gait abnormalities, or tremors. ENT: No hearing loss, otalgia, otorrhea, rhinitis, rhinorrhea, hoarseness, or sore throat. CARDIOVASCULAR: Denies any exertional angina, dyspnea on exertion, orthopnea, paroxysmal nocturnal dyspnea, palpitations, life-threatening arrhythmias, claudication. PULMONARY: Denies any shortness of breath, cough, phlegm/sputum, hemoptysis, pleuritic chest pain. SLEEP: Denies morning headaches, daytime somnolence or napping. Denies difficulty falling asleep, staying asleep, waking from sleep. Denies knowledge of snoring. GASTROINTESTINAL: Denies any type of dysphagia to either liquids or solids. Denies nausea, vomiting, pyrosis, early satiety, abdominal pain, diarrhea, constipation, or changes in stool consistency or caliber. Denies coffee-ground emesis, hematemesis, hematochezia, or melanotic stools. GENITOURINARY: Denies frequency, urgency, nocturia, hematuria or incontinence (Storage/Irritative symptoms.) Low urinary stream, straining to void, urinary intermittency or hesitancy, splitting of the voiding stream, terminal dribbling. ENDOCRINOLOGIC: Denies polyuria, polydipsia, polyphagia or heat/cold intolerances. HEMATOLOGIC: Denies thrombophilia/previous clots, or coagulopathy/bleeding disorders. ONCOLOGIC: Denies personal history of malignancy. DERMATOLOGIC: Denies rashes or pruritus. PSYCHIATRIC: Denies any suicidal or homicidal ideation. Denies hallucinations. PHYSICAL EXAM GENERAL APPEARANCE: The patient is awake, alert, and oriented, in no acute cardiopulmonary distress. NEUROLOGICAL: Cranial nerves II-XII grossly intact. Motor is 5/5 in bilateral upper and lower extremities proximal to distal. No sensory deficits. HEENT: Face is symmetric. Pupils are equal and reactive. Extraocular movements are intact. NECK: Supple. No JVD. No thyromegaly. No submental, submandibular, pre- /postauricular, occipital or supraclavicular lymphadenopathy. CHEST: Normal chest expansion. No Telemetry. LUNGS: Absence of any rales, rhonchi or any wheezing. CARDIOVASCULAR: Regular. S1 and S2 normal. No appreciable rubs, murmurs or gallops. ABDOMEN: Soft, nontender, and nondistended. There is no rebound, voluntary guarding, or rigidity. : Deferred. No Pinedo. EXTREMITIES: Edema to right foot No clubbing. Good capillary refill. SKIN: Open wound ulcer to right great toe Vital Signs (last 8hr) Date Time Temp Pulse Resp B/P (MAP) Pulse Ox O2 Delivery O2 Flow Rate FiO2 01/30/25 09:00 97.9 77 18 152/106 Room Air LABS: Laboratory: Test 01/30/25 12:06 01/30/25 06:04 01/29/25 20:35 01/29/25 20:15 Range/Units Whole Blood Glucose 248 #H 70-110 MG/DL White Blood Count 12.3 H 4.8-10.8 K/uL Red Blood Count 4.07 L 4.50-6.20 MIL/uL Hemoglobin 12.4 L 14.0-18.0 g/dL Hematocrit 35.6 L 42-54 % Mean Corpuscular Volume 87.5 79-99 fL Mean Corpuscular Hemoglobin 30.5 27.0-33.0 pg Mean Corpuscular Hemoglobin Concent 34.8 32.0-36.0 g/dL Red Cell Distribution Width 12.6 11.0-15.5 % Platelet Count 393 130-400 K/uL Mean Platelet Volume 10.3 7.5-10.5 fL Immature Granulocyte % (Auto) 1.0 0-1 % Neutrophils (%) (Auto) 72.7 40.0-77.0 % Lymphocytes (%) (Auto) 17.5 L 21.0-51.0 % Monocytes (%) (Auto) 6.4 3.0-13.0 % Eosinophils (%) (Auto) 1.5 0.0-8.0 % Basophils (%) (Auto) 0.9 0.0-5.0 % Neutrophils # (Auto) 9.0 H 1.8-7.7 K/uL Lymphocytes # (Auto) 2.2 1.0-4.8 K/uL Monocytes # (Auto) 0.8 0.1-1.0 K/uL Eosinophils # (Auto) 0.18 0.00-0.70 K/uL Basophils # (Auto) 0.11 0.00-0.20 K/uL Absolute Immature Granulocyte (auto 0.12 0-1 K/uL Nucleated Red Blood Cells 0.0 0.0-0.19 % Sodium Level 141 136-145 mmol/L Potassium Level 3.3 L 3.5-5.1 mmol/L Chloride Level 105 101-111 mmol/L Carbon Dioxide Level 31 21-32 mmol/L Blood Urea Nitrogen 18 7-18 mg/dL Creatinine 1.1 0.5-1.3 mg/dL Glomerular Filtration Rate Calc 80 >90 mL/min Random Glucose 229 #H 70-105 mg/dL Hemoglobin A1c 11.8 H 4.0-6.0 % Estimated Average Glucose (eAG) 292 H 70-126 mg/dL Lactic Acid Level 1.1 0.8-2.5 mmol/L Total Calcium 8.3 L 8.5-10.1 mg/dL Magnesium Level 1.50 L 1.80-2.40 mg/dL Total Bilirubin 0.2 0.2-1.0 mg/dL Direct Bilirubin 0.1 0.0-0.3 mg/dL Aspartate Amino Transf (AST/SGOT) 7 L 10-37 U/L Alanine Aminotransferase (ALT/SGPT) 15 12-78 U/L Alkaline Phosphatase 89 50-136 U/L Ammonia 40 H 11-32 umol/L Total Creatine Kinase 23 21-232 U/L B-Type Natriuretic Peptide 41 0-100 pg/mL Total Protein 5.8 L 6.0-8.3 g/dL Albumin 1.4 L 3.5-5.0 g/dL Amylase Level 50 25-115 U/L Lipase 20 16-77 U/L Procalcitonin < 0.05 L 0.05-0.5 ng/mL Urine Color COLORLESS YELLOW Urine Appearance CLEAR CLEAR Urine pH 7.0 5.0-8.0 Urine Specific [place] 1.008 1.001-1.031 Urine Protein 200 H NEGATIVE mg/dL Urine Glucose (UA) >=1000 H NEGATIVE mg/dL Urine Ketones NEGATIVE NEGATIVE mg/dL Urine Occult Blood SMALL H NEGATIVE Urine Nitrate NEGATIVE NEGATIVE Urine Bilirubin NEGATIVE NEGATIVE mg/dL Urine Urobilinogen 0.2 0.2-1.0 mg/dL Urine Leukocyte Esterase NEGATIVE NEGATIVE Anders/uL Urine RBC 6-10 H 0-1 /HPF Urine WBC 0-1 0-1 /HPF Urine Squamous Epithelial Cells RARE 0-2 /HPF Urine Bacteria None None Seen /HPF Influenza Type A Antigen Negative For Type A NEGATIVE Influenza Type B Antigen Negative For Type B NEGATIVE Test 01/29/25 16:55 Range/Units Erythrocyte Sedimentation Rate 112 H 0-20 MM/HR Current Medications Medications (Trade) Dose Ordered Sig/Eva Route PRN Reason Start Time Stop Time Status Last Admin Dose Admin Acetaminophen (TYLenol 325MG TAB) 650 mg Q4H PRN PO MILD PAIN (1-3) 01/29/25 18:00 02/28/25 17:59 Acetaminophen (TYLenol 325MG TAB) 650 mg Q6H PRN PO MILD PAIN (1-3) 01/29/25 18:00 01/30/25 11:57 DC Acetaminophen (TYLenol 325MG TAB) 650 mg Q6H PRN PO TEMPERATURE GREATER THAN 101.5 01/29/25 18:00 02/28/25 17:59 Al Hydroxide/Mg Hydroxide (MAALox PLUS 30ML) 30 ml Q6H PRN PO INDIGESTION 01/29/25 18:00 02/28/25 17:59 Dextrose (D50w) 50 ml AD PRN IV HYPOGLYCEMIA PROTOCOL 01/29/25 18:00 02/28/25 17:59 Dextrose (D50w) 50 ml AD PRN IV HYPOGLYCEMIA PROTOCOL 01/29/25 20:00 01/30/25 11:57 DC Diphenhydramine HCl (BENAdryl INJ) 25 mg Q6H PRN IV SEVERE ITCHING/RASH 01/29/25 18:00 02/28/25 17:59 Famotidine (Pepcid 20mg Vial) 20 mg BID IV 01/29/25 21:00 02/28/25 20:59 01/30/25 08:36 20 MG Famotidine (Pepcid 20mg Vial) 20 mg BID PRN IV NAUSEA/VOMITING 01/29/25 18:00 01/30/25 11:55 DC Glucagon (Glucagon 1mg Kit) 1 mg AD PRN IM HYPOGLYCEMIA PROTOCOL 01/29/25 18:00 01/30/25 11:57 DC Glucagon (Glucagon 1mg Kit) 1 mg AD PRN IM HYPOGLYCEMIA PROTOCOL 01/29/25 20:00 02/28/25 19:59 Guaifenesin/ Dextromethorphan (RobiTUSSin DM 200/20MG 10ML) 10 ml Q4H PRN PO COUGH 01/29/25 18:00 02/28/25 17:59 Heparin Sodium (Porcine) (HEParin 5,000 UNIT VIAL) 5,000 unit BID SQ 01/29/25 21:00 02/28/25 20:59 01/30/25 08:50 5,000 UNIT Hydralazine HCl (APRESOLine 20MG INJ) 10 mg Q6H PRN IV For:SBP above 160;DBP above 90 01/29/25 18:00 02/28/25 17:59 Insulin Human Regular (humuLIN R 100 UNIT/ML 3ML) INSULIN SLIDING SCAL... ACHS SQ 01/29/25 21:00 02/28/25 20:59 Insulin Human Regular (humuLIN R 100 UNIT/ML 3ML) INSULIN SLIDING SCAL... Q4H SQ 01/29/25 20:00 02/28/25 19:59 01/30/25 04:47 6 UNIT Ketorolac Tromethamine (toRADol) 15 mg Q8H PRN IV MODERATE PAIN (4-6) 01/29/25 18:00 02/03/25 17:59 01/30/25 01:27 15 MG Lactulose (Constulose 20gm/ 30ml Udcup) 20 gm BID PRN PO CONSTIPATION 01/29/25 18:00 02/28/25 17:59 Magnesium Sulfate 50 ml @ 0 mls/hr PROTOCOL PRN IV OTHER [SEE ORDER COMMENTS] 01/29/25 18:00 02/28/25 17:59 01/30/25 08:40 25 MLS/HR Morphine Sulfate (morPHINE 2MG SYG) 1 mg Q4H PRN IVP SEVERE PAIN (7-10) 01/29/25 18:00 02/05/25 17:59 01/29/25 22:25 1 MG Nitroglycerin (Nitrostat) 0.4 mg PROTOCOL PRN SL CHEST PAIN 01/29/25 18:00 02/28/25 17:59 Ondansetron HCl (zoFRAN 4MG INJ) 4 mg Q6H PRN IV NAUSEA/VOMITING 01/29/25 18:00 02/28/25 17:59 Oxycodone/ Acetaminophen (perCOCET) 1 tab Q6H PRN PO SEVERE PAIN (7-10) 01/29/25 18:00 01/30/25 11:57 DC 01/29/25 20:27 1 TAB Piperacillin Sod/ Tazobactam Sod 50 ml @ 12.5 mls/hr ZOSY8 IV 01/29/25 21:00 01/30/25 11:31 DC 01/30/25 04:55 12.5 MLS/HR Piperacillin Sod/ Tazobactam Sod (Zosyn 3.375gm+NS 50ml) 3.375 gm Q8H IVPB 01/30/25 12:00 02/09/25 11:59 Piperacillin Sod/ Tazobactam Sod (Zosyn 3.375gm+NS 50ml) 3.375 gm ZOSY12 IV 01/29/25 21:00 01/30/25 11:58 DC 01/29/25 21:22 3.375 GM Potassium Chloride 100 ml @ 100 mls/hr AD PRN IV POTASSIUM PROTOCOL 01/29/25 18:00 02/28/25 17:59 Potassium Chloride (K-Dur/Klor-Con 20meq) 20 meq AD PRN PO POTASSIUM PROTOCOL 01/29/25 18:00 02/28/25 17:59 01/30/25 08:40 20 MEQ Potassium Chloride (KCl 10% Elixir 20meq/15ml) 20 meq AD PRN PO POTASSIUM PROTOCOL 01/29/25 18:00 02/28/25 17:59 Sodium Chloride 1,000 ml @ 0 mls/hr ONCE IV 01/29/25 18:00 01/30/25 17:59 01/29/25 20:28 1,200 MLS/HR Sodium Chloride (NS 50ml) 50 ml AD IV 01/30/25 13:00 01/30/25 11:58 DC Vancomycin HCl 250 ml @ 125 mls/hr ONCE IV 01/29/25 18:00 01/29/25 19:59 DC Vancomycin HCl (Vancomycin 1g/ 250ml Kit) 1 gm ONCE IV 01/29/25 17:30 01/29/25 23:59 DC 01/29/25 20:20 1 GM Zolpidem Tartrate (AmbIEN) 5 mg HS PRN PO INSOMNIA 01/29/25 18:00 02/28/25 17:59 DIAGNOSTICS / RADIOLOGY: PATIENT: DAMION VENTURA MR#: [id number] : 1970 SEX: M AGE: 54 LOCATION: [facility] ORDER 46 STATUS: ADM IN HOSPITAL REPORT#: [id number] SERVICE 35 REASON: dvt ORDERING PHYSICIAN: SHIV KENNEY APRN PROCEDURE: VENOUS MARIFER - US VENOUS DOPPLER BILATERAL US VENOUS DOPPLER BILATERAL HISTORY: Leg swelling COMPARISON: None TECHNIQUE: Bilateral lower extremity venous Doppler ultrasound study was performed. FINDINGS: The common femoral, femoral, popliteal, and posterior tibial veins are visualized. Normal flow with augmentation and compressibilities are demonstrated. The greater saphenous veins are also seen and grossly patent. There are bilateral inguinal lymph nodes with the largest in the right measured 4.6 cm on the left measuring 3.3 cm. IMPRESSION: 1. No evidence of deep venous thrombosis is seen. DICTATED BY: SHAWN SPEAR MD DATE: 01/29/251845 ELECTRONICALLY SIGNED BY: SHAWN SPEAR MD DATE: 01/29/251848 PATIENT: DAMION VENTURA MR#: [id number] : 1970 SEX: M AGE: 54 LOCATION: [facility] ORDER 46 STATUS: [facility] REPORT#: [id number] SERVICE 35 REASON: dvt ORDERING PHYSICIAN: SHIV KENNEY APRN PROCEDURE: ART B LE - US ARTERIAL BILAT LOW EXT DUPL US ARTERIAL BILAT LOW EXT DUPL HISTORY: Leg pain COMPARISON: None TECHNIQUE: Bilateral lower extremity arterial Doppler ultrasound study was performed. FINDINGS: Normal triphasic and biphasic arterial waveforms are noted in the common femoral, deep femoral, superficial femoral, popliteal arteries. Abnormal monophasic arterial waveforms are seen in the bilateral posterior tibial and right anterior tibia and dorsalis pedal arteries with hyperemic flow. Biphasic arterial waveform is seen in the left anterior tibial and dorsalis pedal arteries. On the right, the peak systolic velocity of the common femoral artery is 114 cm/s, the proximal femoral artery is 117 cm/s, the mid femoral artery is 134 cm/s, the distal femoral artery is 141 cm/s, the proximal popliteal artery is 158 cm/s, the distal popliteal artery is 140 cm/s, the anterior tibial artery is 112 cm/s, the posterior tibial artery artery is 141 cm/s,and the dorsalis pedal artery is 146 cm/s. IMPRESSION: 1. Atherosclerotic disease. 2. Abnormal monophasic arterial waveforms are seen in the bilateral posterior tibial and right anterior tibia and dorsalis pedal arteries with hyperemic flow. DICTATED BY: SHAWN SPEAR MD DATE: 01/29/251933 ELECTRONICALLY SIGNED BY: SHAWN SPEAR MD DATE: 01/29/251937 PATIENT: DAMION VENTURA MR#: [id number] : 1970 SEX: M AGE: 54 LOCATION: [facility] ORDER 163 STATUS: ADM IN REPORT#: [id number] SERVICE 162 REASON: osteo ORDERING PHYSICIAN: DANIEL WILKINS MD PROCEDURE: TOES RT - TOE(S) 2+VWS RT TOE(S) 2+VWS RT HISTORY: Osteo COMPARISON: None TECHNIQUE: 3 images of the right great toe were obtained. FINDINGS: There is no acute displaced fracture or dislocation. There is soft tissue swelling. Evaluation for osteomyelitis is limited with radiographs. Degenerative changes are seen. IMPRESSION: 1. Findings as described above. DICTATED BY: SHAWN SPEAR MD DATE: 01/29/251927 ELECTRONICALLY SIGNED BY: SHAWN SPEAR MD DATE: 01/29/251930 ASSESSMENT: Right great toe cellulitis versus osteomyelitis POA Infected right great toe wound ulcer POA Uncontrolled hypertension POA Hyperglycemia secondary to uncontrolled diabetes POA Normocytic normochromic anemia POA Pseudohyponatremia due to hyperglycemia POA Acute kidney injury POA Hypokalemia POA Nicotine dependence POA Positive cocaine use POA Medication noncompliance POA Hyperlipidemia POA PLAN: Right great toe cellulitis versus osteomyelitis POA Infected right great toe wound ulcer POA *Consult for podiatry has been placed. *MRI ordered to rule out osteomyelitis *Continue with Zosyn 3.375g IV as ordered. Uncontrolled hypertension POA *Continue with all medications as ordered. *Follow hemodynamics. *Vital signs per facility protocol *Continue on heart healthy diet Hyperglycemia secondary to uncontrolled diabetes POA *Maintain blood glucose between 70-110 at all times *Insulin Glargine 20 units SC hs ordered. *Insulin sliding scale for blood glucose management *Hyperglycemia and hypoglycemia protocols in place Normocytic normochromic anemia POA *Monitor H & H. Keep Hgb > 7 *Transfuse 1 unit of PRBC for Hgb < 7 Pseudohyponatremia due to hyperglycemia POA Hypokalemia POA * Monitor and replace electrolytes as per protocol Acute kidney injury POA *Strict monitoring of intake and output *Daily weights *Discontinue all nephrotoxic agents *Monitor electrolytes and replace as needed *Goal urine output of 30 ml/h or 0.5ml/kg/hr *Medications to be dosed according to renal function *Avoid the use of contrast if possible. Others *Continue on heparin 5000 subQ b.i.d. for DVT prophylaxis *Continue on Famotidine 20 mg IV bid for GI prophylaxis *Counseled on cigarette and cocaine use cessation We will admit patient in medical surgical floor We will start on heart healthy diet We will start on Zosyn IV and vancomycin IV for empiric coverage We will start on heparin 5000 subQ b.i.d. for DVT prophylaxis We will start on Famotidine 20 mg IV bid for GI prophylaxis We will replace electrolytes as needed per protocol Counseled on cigarette and cocaine use cessation We will request physical therapy service for eval and treat We will seek podiatry consultation We will follow up urine and wound culture We will start on insulin sliding scale AC & HS with hypoglycemia protocol We will add prn medication for fever,pain,cough , elevated BP nausea and vomiting We will request labs in am Further orders to follow depending on above results Case discussed with attending physician and came up with above treatment and plan of care. ATTESTATION BY PHYSICIAN I have seen and examined the patient. I reviewed the documentation, medical decision making, and treatment plan as noted by the resident provider above. I agree with the findings and plan of care. Papo Sargent MD OBI,CHRISTINE Tobias MD Jan 30, 2025 12:32
[2025-01-30] MEDS ORDERED: 0.9%NACL 50ML IV SCH (13:00)
[2025-01-30] MEDS: ZOSYN 3.375GM +NS 50ML IVPB SCH (13:42)
--- NOTE | 2025-01-30 14:24 | NUR ---
ON ARRIVAL PT LYING IN BED WITH EYES OPEN. A/O X4. PT ABLE TO MAKE NEEDS KNOWN. DENIES PAIN OR DISCOMFORT. RESP EVEN &UNLABORED. RIGHT FOOT WRAPPED IN KURLEX AND INTACT. NO DRAINAGE NOTED.
--- NOTE | 2025-01-30 15:02 | HMCIMG ---
MR FOOT RIGHT WWO HISTORY: Osteomyelitis of great toe COMPARISON: None TECHNIQUE: MRI of the right foot was performed utilizing multiple pulse sequences in axial, coronal and sagittal planes. Patient was given 16 cc of Omniscan through intravenous route. FINDINGS: Abnormal increased signal intensity is seen involving the first distal phalanx suggestive of osteomyelitis. Adjacent cellulitis changes are seen. IMPRESSION: 1. Abnormal increased signal intensity is seen involving the first distal phalanx suggestive of osteomyelitis. Adjacent cellulitis changes are seen.
[2025-01-30] MEDS ORDERED: OMEP10CA5 PO (15:21)
[2025-01-30] MEDS: INSULIN GLARgine 100 UNITS/ML 10 ML VIAL SQ SCH (21:08)
[2025-01-31] VITALS (23 sets, daily range): BP systolic 117–194; BP diastolic 69–98; PULSE 68–96; RESP 15–20; TEMP 97.5–98.4; O2SAT 100
[2025-01-31 05:15] LABS: BASOPHILS # (AUTO) 0.09 K/uL (0.00-0.20); BASOPHILS % (AUTO) 0.8 % (0.0-5.0); EOSINOPHILS # (AUTO) 0.22 K/uL (0.00-0.70); HEMATOCRIT 35.8 % (42-54); IMMATURE GRANULOCYTE ABSOLUTE 0.08 K/uL (0-1); LYMPHOCYTES # (AUTO) 3.2 K/uL (1.0-4.8); LYMPHOCYTES % (AUTO) 28.8 % (21.0-51.0); MEAN CORPUSCULAR HEMOGLOBIN 30.5 pg (27.0-33.0); MEAN CORPUSCULAR HGB CONC 34.9 g/dL (32.0-36.0); MEAN CORPUSCULAR VOLUME 87.3 fL (79-99); MONOCYTES # (AUTO) 0.7 K/uL (0.1-1.0); MONOCYTES % (AUTO) 6.2 % (3.0-13.0); NEUTROPHILS # (AUTO) 6.8 K/uL (1.8-7.7); NEUTROPHILS % (AUTO) 61.5 % (40.0-77.0); PLATELET COUNT (AUTO) 393 K/uL (130-400); RED CELL DISTRIBUTION WIDTH 12.6 % (11.0-15.5)
[2025-01-31 05:33] LABS: ALBUMIN 1.4 g/dL (3.5-5.0); BILIRUBIN,TOTAL 0.2 mg/dL (0.2-1.0); POTASSIUM 3.3 mmol/L (3.5-5.1)
--- NOTE | 2025-01-31 07:54 | PN ---
PROGRESS NOTE Date of Service: Jan 31, 2025 Time of Service: 07:51 SUBJECTIVE: This 54 years old male seen for follow-up on ulceration on diabetic foot infection hallux right MRI positive for osteomyelitis. REVIEW OF SYSTEMS CONSTITUTIONAL: Denies fever, chills, or fatigue. HEAD/FACE: No signs of trauma. EENT: Denies eye pain, blurred vision, double vision, or light sensitivity. RESPIRATORY: Denies shortness of breath, cough and wheezing most likely superimposed pneumonia. CARDIOVASCULAR: Denies chest pain, palpitation, syncope GASTROINTESTINAL/ABDOMINAL: Denies abdominal pain, constipation, diarrhea, nausea or vomiting GENITOURINARY: Denies dysuria or hematuria. MUSCULOSKELETAL: Denies joint pain, tenderness, or trauma. INTEGUMENTARY: Ulcer cellulitis and infection of the great toe right foot. NEUROLOGICAL/PSYCH: Denies anxiety, depression, heat or cold intolerance. PHYSICAL EXAM EYES: Anicteric. Pupils equal and reactive. HENT: No oral thrush seen, moist Oral mucosa NECK: Supple, no JVD or thyromegaly. LUNGS: Coughing and wheezing congested. CARDIOVASCULAR: S1, S2 regular. No murmur heard. ABDOMEN: Soft, non tender, bowel sounds present, no organomegaly CENTRAL NERVOUS SYSTEM: Awake, alert, oriented x 3. No focal deficits. SKIN: Ulcer and infection on the great toe right foot cellulitis to the right lower extremity.. LYMPHATICS: No peripheral lymphadenopathy MUSCULOSKELETAL: No joint swelling, erythema or tenderness. EXTREMITIES: No cyanosis or clubbing BACK: No deformity, no pressure ulcer. GENITOURINARY: No dysuria or hematuria Vital Signs (last 8hr) Date Time Temp Pulse Resp B/P (MAP) Pulse Ox O2 Delivery O2 Flow Rate FiO2 01/31/25 07:46 98.4 74 20 162/92 100 Room Air 01/31/25 04:00 97.7 77 20 158/93 99 Room Air 01/30/25 23:53 98.1 78 20 184/94 98 Room Air LABS: Laboratory: Test 01/31/25 05:04 01/31/25 05:03 01/30/25 06:04 01/29/25 20:35 Range/Units White Blood Count 11.0 H 4.8-10.8 K/uL Red Blood Count 4.10 L 4.50-6.20 MIL/uL Hemoglobin 12.5 L 14.0-18.0 g/dL Hematocrit 35.8 L 42-54 % Mean Corpuscular Volume 87.3 79-99 fL Mean Corpuscular Hemoglobin 30.5 27.0-33.0 pg Mean Corpuscular Hemoglobin Concent 34.9 32.0-36.0 g/dL Red Cell Distribution Width 12.6 11.0-15.5 % Platelet Count 393 130-400 K/uL Mean Platelet Volume 9.6 7.5-10.5 fL Immature Granulocyte % (Auto) 0.7 0-1 % Neutrophils (%) (Auto) 61.5 40.0-77.0 % Lymphocytes (%) (Auto) 28.8 21.0-51.0 % Monocytes (%) (Auto) 6.2 3.0-13.0 % Eosinophils (%) (Auto) 2.0 0.0-8.0 % Basophils (%) (Auto) 0.8 0.0-5.0 % Neutrophils # (Auto) 6.8 1.8-7.7 K/uL Lymphocytes # (Auto) 3.2 1.0-4.8 K/uL Monocytes # (Auto) 0.7 0.1-1.0 K/uL Eosinophils # (Auto) 0.22 0.00-0.70 K/uL Basophils # (Auto) 0.09 0.00-0.20 K/uL Absolute Immature Granulocyte (auto 0.08 0-1 K/uL Nucleated Red Blood Cells 0.0 0.0-0.19 % Sodium Level 141 136-145 mmol/L Potassium Level 3.3 L 3.5-5.1 mmol/L Chloride Level 106 101-111 mmol/L Carbon Dioxide Level 30 21-32 mmol/L Blood Urea Nitrogen 16 7-18 mg/dL Creatinine 1.0 0.5-1.3 mg/dL Glomerular Filtration Rate Calc 90 >90 mL/min Random Glucose 136 H 70-105 mg/dL Total Calcium 8.6 8.5-10.1 mg/dL Total Bilirubin 0.2 0.2-1.0 mg/dL Aspartate Amino Transf (AST/SGOT) 6 L 10-37 U/L Alanine Aminotransferase (ALT/SGPT) 11 #L 12-78 U/L Alkaline Phosphatase 90 50-136 U/L Total Protein 6.0 6.0-8.3 g/dL Albumin 1.4 L 3.5-5.0 g/dL Whole Blood Glucose 143 H 70-110 MG/DL Hemoglobin A1c 11.8 H 4.0-6.0 % Estimated Average Glucose (eAG) 292 H 70-126 mg/dL Lactic Acid Level 1.1 0.8-2.5 mmol/L Magnesium Level 1.50 L 1.80-2.40 mg/dL Direct Bilirubin 0.1 0.0-0.3 mg/dL Ammonia 40 H 11-32 umol/L Total Creatine Kinase 23 21-232 U/L B-Type Natriuretic Peptide 41 0-100 pg/mL Amylase Level 50 25-115 U/L Lipase 20 16-77 U/L Procalcitonin < 0.05 L 0.05-0.5 ng/mL Urine Color COLORLESS YELLOW Urine Appearance CLEAR CLEAR Urine pH 7.0 5.0-8.0 Urine Specific Bally 1.008 1.001-1.031 Urine Protein 200 H NEGATIVE mg/dL Urine Glucose (UA) >=1000 H NEGATIVE mg/dL Urine Ketones NEGATIVE NEGATIVE mg/dL Urine Occult Blood SMALL H NEGATIVE Urine Nitrate NEGATIVE NEGATIVE Urine Bilirubin NEGATIVE NEGATIVE mg/dL Urine Urobilinogen 0.2 0.2-1.0 mg/dL Urine Leukocyte Esterase NEGATIVE NEGATIVE Anders/uL Urine RBC 6-10 H 0-1 /HPF Urine WBC 0-1 0-1 /HPF Urine Squamous Epithelial Cells RARE 0-2 /HPF Urine Bacteria None None Seen /HPF Test 01/29/25 20:15 01/29/25 16:55 Range/Units Influenza Type A Antigen Negative For Type A NEGATIVE Influenza Type B Antigen Negative For Type B NEGATIVE Erythrocyte Sedimentation Rate 112 H 0-20 MM/HR DIAGNOSTICS / RADIOLOGY: X-rays were noncontributory for bone changes at this point. MRI positive for osteomyelitis of the distal phalanx of the great toe right foot. ASSESSMENT: Diabetic foot infection hallux infection right foot. Osteomyelitis right foot great toe. PLAN: MRI was positive for osteomyelitis of the great toe recommendation at this time will be for amputation of the hallux in order to salvage the limb and prevent further complications secondary to ongoing comorbidities. No guarantees were offered at this time this was explained to the patient unless he modify his lifestyle he may need a more proximal amputation in the future. Patient is scheduled for today for surgery. IVONE PABLO DPM Jan 31, 2025 07:54
--- NOTE | 2025-01-31 08:51 | NUR ---
HEPARIN HELD DUE TO PATIENT GOING TO PROCEDURE AT 1200
[2025-01-31 09:05] LABS: INR 0.96 (0.85-1.15); PROTHROMBIN TIME 10.2 SEC (9.6-11.6)
[2025-01-31 09:06] LABS: PARTIAL THROMBOPLASTIN TIME 29.2 SEC (26.3-35.5)
--- NOTE | 2025-01-31 10:48 | NUR ---
PATIENT TAKEN DOWN TO OR FOR PROCEDURE. NO SIGNS AND SYMPTOMS OF DISTRESS NOTED. UA FOR DRUG SCREEN WAS NOT OBTAINED DUE TO PATIENT NOT HAVING TO VOID AT THIS TIME. MADE RN TRANSPORTING AWARE.
--- NOTE | 2025-01-31 11:00 | NUR ---
Patient out of room for amputation of R GT. PT team to follow post-op with orders. Addendum: 01/31/25 at 1452 by YRIS POLANCO PT Amended: Links added.
[2025-01-31 11:34] LABS: AMPHET/METH SCREEN,URINE NEGATIVE (NEGATIVE); BARBITURATE SCREEN, URINE NEGATIVE (NEGATIVE); BENZODIAZEPINES SCREEN,URINE NEGATIVE (NEGATIVE); CANNABINOID SCREEN,URINE NEGATIVE (NEGATIVE); COCAINE SCREEN,URINE NEGATIVE (NEGATIVE); OPIATE SCREEN,URINE NEGATIVE (NEGATIVE); PHENCYCLIDINE SCREEN,URINE NEGATIVE (NEGATIVE)
[2025-01-31] MEDS: acetaMINOPHEN 100 ML ONE (11:39)
[2025-01-31] MEDS: FAMOTIDINE 20MG VIAL IV ONE (11:40)
[2025-01-31] MEDS ORDERED: LIDOCAINE PF 100MG/5ML (2%) SYRINGE 5ML ONE (11:43)
[2025-01-31] MEDS ORDERED: FENTanyl CITRate PF 50 MCG/1 ML 2ML VIAL ONE (11:44)
[2025-01-31] MEDS ORDERED: MIDAZOLAM HCL 1 MG/ML 2ML VIAL ONE (11:44)
[2025-01-31] MEDS ORDERED: proPOFol 10 MG/ML 20ML VIAL IV ONE ×2 (11:44→11:57)
[2025-01-31] MEDS: LIDOCAINE HCL 1% 20 ML VIAL ONE (11:56)
[2025-01-31] MEDS: BUPIvacaine/PF 0.5% 30ML VIAL ONE (11:56)
[2025-01-31] MEDS ORDERED: ondanSETRON 4MG INJ ONE (11:59)
[2025-01-31] MEDS ORDERED: dexaMETHasone SOD PHOSPHATE 4 MG/ML 1ML VIAL ONE (11:59)
--- NOTE | 2025-01-31 12:26 | OP ---
Operative Note: DATE OF PROCEDURE: 01/31/25 SURGEON: IVONE PABLO DPM FRAMER: Or tech ANESTHESIA: 1% xylocaine 0.25% Marcaine plain total of 20 cc to the right foot. ANESTHESIOLOGIST/DISTANCE LEARNING UNIT LEADER: KAREN PREOPERATIVE DIAGNOSIS: Osteomyelitis of the right hallux POSTOPERATIVE DIAGNOSIS: Osteomyelitis of the right hallux SYNOPSIS: Patient admitted through the emergency room with a osteomyelitis of the right hallux infection MRI confirmed osteomyelitis of the distal phalanx at this time decision was made for amputation of the toe in an attempt to salvage his foot no guarantees were offered. PROCEDURE: Amputation of right hallux metatarsophalangeal joint level ESTIMATED BLOOD LOSS: 5 cc INDICATIONS: Osteomyelitis of the hallux DESCRIPTION OF PROCEDURE: Patient was brought into the operating room table placed in the supine position on the IV sedation local anesthesia was achieved via local infiltration 1% xylocaine 0.25% Marcaine total of 20 cc 50 50 mixture given to the right foot. At this moment attention was directed towards the hallux after the foot was prepped and draped in the usual sterile fashion two semielliptical incision were performed along the metatarsophalangeal joint area this incision was carried down through subcutaneous tissue making sure to protect neurovascular structures the incision was carried down through capsular level medial capsulotomy and a lateral capsulotomy was performed dorsal tenotomy and plantar tenotomies were performed and the hallux was disarticulated at the level of the metatarsophalangeal joint the head of the metatarsal of 1st was inspected was noted to be healthy at this time. At this moment cultures and sensitivity were taken of the wound was irrigated with copious amounts of saline solution wounds was reapproximated utilizing 2-0 nylon on the simple and horizontal mattress fashion and a Franklin drain was placed of the over the dorsal aspect of the incision site in order to allow for drainage if necessary. Patient tolerated procedure and anesthesia well was sent to recovery room with vital signs stable and to the floor for continued medical management. N onweightbearing with crutches has been recommended at this point and dressing changes orders have been given every other day. IVONE PABLO DPM Jan 31, 2025 12:26
--- NOTE | 2025-01-31 12:37 | PN ---
[facility] PROGRESS NOTE Date of Service: Jan 31, 2025 Time of Service: 12:26 SUBJECTIVE: HPI Patient is a 54-year-old male with past medical history of diabetes, high cholesterol ,hypertension and medication noncompliance who presents to the ED for complaints of right great toe open wound which started 3 days ago. Patient stated that he noticed redness and swelling of the nail and he started applying Neosporin ointment for about 2 days and when he uncovered it days later, he noticed that it was swollen and was draining pus. Patient reports he has not been taking any medications for almost 8 months now and he has not been to a doctor as well.Patient denies any trauma,injury or insect bite on his right great toe.Patient also reports he has history of right great toe partial amputation. Patient denies pain at this time.Patient denies fever,chills,nausea and vomiting. 01/30/25: Lying in bed at the time of evaluation. Alert and oriented and in no obvious distress. Denies any fever, chills, nausea, vomiting or pain. Vital signs: T 98.4, P 90, R 18, BP 128/75, 96% on RA. Labs: Sodium 141, potassium 3.3 We will replace as per protocol, glucose 229, hemoglobin A1c 11.8, lactic acid 1.0, ammonia 40, BUN 18 , creatinine 1.1 A venous Doppler showed no evidence of deep venous thrombosis, x-ray of the right foot showed no acute displaced fracture or dislocation and arterial Doppler showed arteriosclerotic disease, abnormal monophasic arterial waveforms in the bilateral posterior tibial arteries, right anterior tibial and dorsalis pedis arteries with hyperemic flow. Consult was placed for Podiatry. Ordered MRI of the foot. Pending results. Patient is currently on Zosyn 3.375g q8hr . 01/31/25: Lying in bed at the time of evaluation. Alert and oriented and in no obvious distress. No acute over night events reported. Denies any fever, chills, nausea, vomiting or pain. Vital signs were unremarkable . Labs : WBC 11 down from 12.3 yesterday, Potassium 3.3, will replace as per protocol. MRI of the right foot showed findings suggestive of osteomyelitis in the first distal phalanx of the right foot. Patient has been seen by Dr Rose. Scheduled an amputation of the right great toe. REVIEW OF SYSTEMS CONSTITUTIONAL: Denies fevers, chills, or night sweats. No unintentional weight loss reported. NEUROLOGICAL: Denies headache, amaurosis fugax, motor weakness, sensory deficit, vertigo/spinning sensation, gait abnormalities, or tremors. ENT: No hearing loss, otalgia, otorrhea, rhinitis, rhinorrhea, hoarseness, or sore throat. CARDIOVASCULAR: Denies any exertional angina, dyspnea on exertion, orthopnea, paroxysmal nocturnal dyspnea, palpitations, life-threatening arrhythmias, claudication. PULMONARY: Denies any shortness of breath, cough, phlegm/sputum, hemoptysis, pleuritic chest pain. SLEEP: Denies morning headaches, daytime somnolence or napping. Denies difficulty falling asleep, staying asleep, waking from sleep. Denies knowledge of snoring. GASTROINTESTINAL: Denies any type of dysphagia to either liquids or solids. Denies nausea, vomiting, pyrosis, early satiety, abdominal pain, diarrhea, constipation, or changes in stool consistency or caliber. Denies coffee-ground emesis, hematemesis, hematochezia, or melanotic stools. GENITOURINARY: Denies frequency, urgency, nocturia, hematuria or incontinence (Storage/Irritative symptoms.) Low urinary stream, straining to void, urinary intermittency or hesitancy, splitting of the voiding stream, terminal dribbling. ENDOCRINOLOGIC: Denies polyuria, polydipsia, polyphagia or heat/cold intolerances. HEMATOLOGIC: Denies thrombophilia/previous clots, or coagulopathy/bleeding disorders. ONCOLOGIC: Denies personal history of malignancy. DERMATOLOGIC: Denies rashes or pruritus. PSYCHIATRIC: Denies any suicidal or homicidal ideation. Denies hallucinations. PHYSICAL EXAM GENERAL APPEARANCE: The patient is awake, alert, and oriented, in no acute cardiopulmonary distress. NEUROLOGICAL: Cranial nerves II-XII grossly intact. Motor is 5/5 in bilateral upper and lower extremities proximal to distal. No sensory deficits. HEENT: Face is symmetric. Pupils are equal and reactive. Extraocular movements are intact. NECK: Supple. No JVD. No thyromegaly. No submental, submandibular, pre- /postauricular, occipital or supraclavicular lymphadenopathy. CHEST: Normal chest expansion. No Telemetry. LUNGS: Absence of any rales, rhonchi or any wheezing. CARDIOVASCULAR: Regular. S1 and S2 normal. No appreciable rubs, murmurs or gallops. ABDOMEN: Soft, nontender, and nondistended. There is no rebound, voluntary guarding, or rigidity. : Deferred. No Pinedo. EXTREMITIES: Edema to right foot No clubbing. Good capillary refill. SKIN: Open wound ulcer to right great toe Vital Signs (last 8hr) Date Time Temp Pulse Resp B/P (MAP) Pulse Ox O2 Delivery O2 Flow Rate FiO2 01/31/25 12:15 97.5 71 15 117/73 95 Room Air 0.0 21 01/31/25 12:10 97.5 70 15 125/74 94 Room Air 0.0 21 01/31/25 10:45 98.4 77 20 194/97 100 Room Air 01/31/25 07:46 98.4 74 20 162/92 100 Room Air LABS: Laboratory: Test 01/31/25 11:08 01/31/25 10:32 01/31/25 08:33 01/31/25 05:04 Range/Units Urine Opiates Screen NEGATIVE NEGATIVE Urine Barbiturates Screen NEGATIVE NEGATIVE Urine Phencyclidine Screen NEGATIVE NEGATIVE Urine Amphetamines Screen NEGATIVE NEGATIVE Urine Benzodiazepines Screen NEGATIVE NEGATIVE Urine Cocaine Screen NEGATIVE NEGATIVE Urine Marijuana (THC) Screen NEGATIVE NEGATIVE Whole Blood Glucose 113 H 70-110 MG/DL Prothrombin Time 10.2 9.6-11.6 SEC Prothromb Time International Ratio 0.96 0.85-1.15 Activated Partial Thromboplast Time 29.2 26.3-35.5 SEC Magnesium Level 1.80 1.80-2.40 mg/dL White Blood Count 11.0 H 4.8-10.8 K/uL Red Blood Count 4.10 L 4.50-6.20 MIL/uL Hemoglobin 12.5 L 14.0-18.0 g/dL Hematocrit 35.8 L 42-54 % Mean Corpuscular Volume 87.3 79-99 fL Mean Corpuscular Hemoglobin 30.5 27.0-33.0 pg Mean Corpuscular Hemoglobin Concent 34.9 32.0-36.0 g/dL Red Cell Distribution Width 12.6 11.0-15.5 % Platelet Count 393 130-400 K/uL Mean Platelet Volume 9.6 7.5-10.5 fL Immature Granulocyte % (Auto) 0.7 0-1 % Neutrophils (%) (Auto) 61.5 40.0-77.0 % Lymphocytes (%) (Auto) 28.8 21.0-51.0 % Monocytes (%) (Auto) 6.2 3.0-13.0 % Eosinophils (%) (Auto) 2.0 0.0-8.0 % Basophils (%) (Auto) 0.8 0.0-5.0 % Neutrophils # (Auto) 6.8 1.8-7.7 K/uL Lymphocytes # (Auto) 3.2 1.0-4.8 K/uL Monocytes # (Auto) 0.7 0.1-1.0 K/uL Eosinophils # (Auto) 0.22 0.00-0.70 K/uL Basophils # (Auto) 0.09 0.00-0.20 K/uL Absolute Immature Granulocyte (auto 0.08 0-1 K/uL Nucleated Red Blood Cells 0.0 0.0-0.19 % Sodium Level 141 136-145 mmol/L Potassium Level 3.3 L 3.5-5.1 mmol/L Chloride Level 106 101-111 mmol/L Carbon Dioxide Level 30 21-32 mmol/L Blood Urea Nitrogen 16 7-18 mg/dL Creatinine 1.0 0.5-1.3 mg/dL Glomerular Filtration Rate Calc 90 >90 mL/min Random Glucose 136 H 70-105 mg/dL Total Calcium 8.6 8.5-10.1 mg/dL Total Bilirubin 0.2 0.2-1.0 mg/dL Aspartate Amino Transf (AST/SGOT) 6 L 10-37 U/L Alanine Aminotransferase (ALT/SGPT) 11 #L 12-78 U/L Alkaline Phosphatase 90 50-136 U/L Total Protein 6.0 6.0-8.3 g/dL Albumin 1.4 L 3.5-5.0 g/dL Test 01/30/25 06:04 01/29/25 20:35 01/29/25 20:15 01/29/25 16:55 Range/Units Hemoglobin A1c 11.8 H 4.0-6.0 % Estimated Average Glucose (eAG) 292 H 70-126 mg/dL Lactic Acid Level 1.1 0.8-2.5 mmol/L Direct Bilirubin 0.1 0.0-0.3 mg/dL Ammonia 40 H 11-32 umol/L Total Creatine Kinase 23 21-232 U/L B-Type Natriuretic Peptide 41 0-100 pg/mL Amylase Level 50 25-115 U/L Lipase 20 16-77 U/L Procalcitonin < 0.05 L 0.05-0.5 ng/mL Urine Color COLORLESS YELLOW Urine Appearance CLEAR CLEAR Urine pH 7.0 5.0-8.0 Urine Specific [place] 1.008 1.001-1.031 Urine Protein 200 H NEGATIVE mg/dL Urine Glucose (UA) >=1000 H NEGATIVE mg/dL Urine Ketones NEGATIVE NEGATIVE mg/dL Urine Occult Blood SMALL H NEGATIVE Urine Nitrate NEGATIVE NEGATIVE Urine Bilirubin NEGATIVE NEGATIVE mg/dL Urine Urobilinogen 0.2 0.2-1.0 mg/dL Urine Leukocyte Esterase NEGATIVE NEGATIVE Anders/uL Urine RBC 6-10 H 0-1 /HPF Urine WBC 0-1 0-1 /HPF Urine Squamous Epithelial Cells RARE 0-2 /HPF Urine Bacteria None None Seen /HPF Influenza Type A Antigen Negative For Type A NEGATIVE Influenza Type B Antigen Negative For Type B NEGATIVE Erythrocyte Sedimentation Rate 112 H 0-20 MM/HR Current Medications Medications (Trade) Dose Ordered Sig/Eva Route PRN Reason Start Time Stop Time Status Last Admin Dose Admin Acetaminophen (TYLenol 325MG TAB) 650 mg Q4H PRN PO MILD PAIN (1-3) 01/29/25 18:00 02/28/25 17:59 Acetaminophen (TYLenol 325MG TAB) 650 mg Q6H PRN PO MILD PAIN (1-3) 01/29/25 18:00 01/30/25 11:57 DC Acetaminophen (TYLenol 325MG TAB) 650 mg Q6H PRN PO TEMPERATURE GREATER THAN 101.5 01/29/25 18:00 02/28/25 17:59 Al Hydroxide/Mg Hydroxide (MAALox PLUS 30ML) 30 ml Q6H PRN PO INDIGESTION 01/29/25 18:00 02/28/25 17:59 Dextrose (D50w) 50 ml AD PRN IV HYPOGLYCEMIA PROTOCOL 01/29/25 18:00 02/28/25 17:59 Dextrose (D50w) 50 ml AD PRN IV HYPOGLYCEMIA PROTOCOL 01/29/25 20:00 01/30/25 11:57 DC Diphenhydramine HCl (BENAdryl INJ) 25 mg Q6H PRN IV SEVERE ITCHING/RASH 01/29/25 18:00 02/28/25 17:59 Famotidine (Pepcid 20mg Vial) 20 mg BID IV 01/29/25 21:00 02/28/25 20:59 01/30/25 21:01 20 MG Famotidine (Pepcid 20mg Vial) 20 mg BID PRN IV NAUSEA/VOMITING 01/29/25 18:00 01/30/25 11:55 DC Glucagon (Glucagon 1mg Kit) 1 mg AD PRN IM HYPOGLYCEMIA PROTOCOL 01/29/25 18:00 01/30/25 11:57 DC Glucagon (Glucagon 1mg Kit) 1 mg AD PRN IM HYPOGLYCEMIA PROTOCOL 01/29/25 20:00 02/28/25 19:59 Guaifenesin/ Dextromethorphan (RobiTUSSin DM 200/20MG 10ML) 10 ml Q4H PRN PO COUGH 01/29/25 18:00 02/28/25 17:59 Heparin Sodium (Porcine) (HEParin 5,000 UNIT VIAL) 5,000 unit BID SQ 01/29/25 21:00 02/28/25 20:59 01/30/25 21:06 5,000 UNIT Hydralazine HCl (APRESOLine 20MG INJ) 10 mg Q6H PRN IV For:SBP above 160;DBP above 90 01/29/25 18:00 02/28/25 17:59 Insulin Glargine (LANtus 100 UNITS/ML 10 ML VIAL) 20 units HS SQ 01/30/25 21:00 03/01/25 20:59 01/30/25 21:08 20 UNITS Insulin Human Regular (humuLIN R 100 UNIT/ML 3ML) INSULIN SLIDING SCAL... ACHS SQ 01/29/25 21:00 02/28/25 20:59 01/30/25 13:30 8 UNIT Insulin Human Regular (humuLIN R 100 UNIT/ML 3ML) INSULIN SLIDING SCAL... Q4H SQ 01/29/25 20:00 02/28/25 19:59 01/30/25 16:21 8 UNIT Ketorolac Tromethamine (toRADol) 15 mg Q8H PRN IV MODERATE PAIN (4-6) 01/29/25 18:00 02/03/25 17:59 01/30/25 21:16 15 MG Lactulose (Constulose 20gm/ 30ml Udcup) 20 gm BID PRN PO CONSTIPATION 01/29/25 18:00 02/28/25 17:59 Magnesium Sulfate 50 ml @ 0 mls/hr PROTOCOL PRN IV OTHER [SEE ORDER COMMENTS] 01/29/25 18:00 02/28/25 17:59 01/30/25 08:40 25 MLS/HR Morphine Sulfate (morPHINE 2MG SYG) 1 mg Q4H PRN IVP SEVERE PAIN (7-10) 01/29/25 18:00 02/05/25 17:59 01/29/25 22:25 1 MG Nitroglycerin (Nitrostat) 0.4 mg PROTOCOL PRN SL CHEST PAIN 01/29/25 18:00 02/28/25 17:59 Ondansetron HCl (zoFRAN 4MG INJ) 4 mg Q6H PRN IV NAUSEA/VOMITING 01/29/25 18:00 02/28/25 17:59 Oxycodone/ Acetaminophen (perCOCET) 1 tab Q6H PRN PO SEVERE PAIN (7-10) 01/29/25 18:00 01/30/25 11:57 DC 01/29/25 20:27 1 TAB Piperacillin Sod/ Tazobactam Sod 50 ml @ 12.5 mls/hr ZOSY8 IV 01/29/25 21:00 01/30/25 11:31 DC 01/30/25 04:55 12.5 MLS/HR Piperacillin Sod/ Tazobactam Sod (Zosyn 3.375gm+NS 50ml) 3.375 gm Q8H IVPB 01/30/25 12:00 02/09/25 11:59 01/31/25 06:07 3.375 GM Piperacillin Sod/ Tazobactam Sod (Zosyn 3.375gm+NS 50ml) 3.375 gm ZOSY12 IV 01/29/25 21:00 01/30/25 11:58 DC 01/29/25 21:22 3.375 GM Potassium Chloride 100 ml @ 100 mls/hr AD PRN IV POTASSIUM PROTOCOL 01/29/25 18:00 02/28/25 17:59 Potassium Chloride (K-Dur/Klor-Con 20meq) 20 meq AD PRN PO POTASSIUM PROTOCOL 01/29/25 18:00 02/28/25 17:59 01/30/25 13:28 20 MEQ Potassium Chloride (KCl 10% Elixir 20meq/15ml) 20 meq AD PRN PO POTASSIUM PROTOCOL 01/29/25 18:00 02/28/25 17:59 Sodium Chloride 1,000 ml @ 0 mls/hr ONCE IV 01/29/25 18:00 01/30/25 17:59 DC 01/29/25 20:28 1,200 MLS/HR Sodium Chloride (NS 50ml) 50 ml AD IV 01/30/25 13:00 01/30/25 11:58 DC Vancomycin HCl 250 ml @ 125 mls/hr ONCE IV 01/29/25 18:00 01/29/25 19:59 DC Vancomycin HCl (Vancomycin 1g/ 250ml Kit) 1 gm ONCE IV 01/29/25 17:30 01/29/25 23:59 DC 01/29/25 20:20 1 GM Zolpidem Tartrate (AmbIEN) 5 mg HS PRN PO INSOMNIA 01/29/25 18:00 02/28/25 17:59 DIAGNOSTICS / RADIOLOGY: PATIENT: DAMION VENTURA MR#: [id number] : 1970 SEX: M AGE: 54 LOCATION: [facility] ORDER 6 STATUS: ADM IN REPORT#: [id number] SERVICE [id number] REASON: Rule out osteomyelitis of the great toe right foot ORDERING PHYSICIAN: IVONE ROSE DPM PROCEDURE: FT RT WWO - MR FOOT RIGHT WWO MR FOOT RIGHT WWO HISTORY: Osteomyelitis of great toe COMPARISON: None TECHNIQUE: MRI of the right foot was performed utilizing multiple pulse sequences in axial, coronal and sagittal planes. Patient was given 16 cc of Omniscan through intravenous route. FINDINGS: Abnormal increased signal intensity is seen involving the first distal phalanx suggestive of osteomyelitis. Adjacent cellulitis changes are seen. IMPRESSION: 1. Abnormal increased signal intensity is seen involving the first distal phalanx suggestive of osteomyelitis. Adjacent cellulitis changes are seen. DICTATED BY: SHAWN SPEAR MD DATE: 01/30/25 4936 ELECTRONICALLY SIGNED BY: SHAWN SPEAR MD DATE: 01/30/25 1502 ASSESSMENT: Right great toe cellulitis versus osteomyelitis POA Infected right great toe wound ulcer POA Uncontrolled hypertension POA Hyperglycemia secondary to uncontrolled diabetes POA Normocytic normochromic anemia POA Pseudohyponatremia due to hyperglycemia POA Acute kidney injury POA Hypokalemia POA Nicotine dependence POA Positive cocaine use POA Medication noncompliance POA Hyperlipidemia POA PLAN: Right great toe cellulitis versus osteomyelitis POA Infected right great toe wound ulcer POA *Consult for podiatry has been placed. *MRI ordered to rule out osteomyelitis *Continue with Zosyn 3.375g IV as ordered. Uncontrolled hypertension POA *Continue with all medications as ordered. *Follow hemodynamics. *Vital signs per facility protocol *Continue on heart healthy diet Hyperglycemia secondary to uncontrolled diabetes POA *Maintain blood glucose between 70-110 at all times *Insulin Glargine 20 units SC hs ordered. *Insulin sliding scale for blood glucose management *Hyperglycemia and hypoglycemia protocols in place Normocytic normochromic anemia POA *Monitor H & H. Keep Hgb > 7 *Transfuse 1 unit of PRBC for Hgb < 7 Pseudohyponatremia due to hyperglycemia POA Hypokalemia POA * Monitor and replace electrolytes as per protocol Acute kidney injury POA *Strict monitoring of intake and output *Daily weights *Discontinue all nephrotoxic agents *Monitor electrolytes and replace as needed *Goal urine output of 30 ml/h or 0.5ml/kg/hr *Medications to be dosed according to renal function *Avoid the use of contrast if possible. Others *Continue on heparin 5000 subQ b.i.d. for DVT prophylaxis *Continue on Famotidine 20 mg IV bid for GI prophylaxis *Counseled on cigarette and cocaine use cessation We will admit patient in medical surgical floor We will start on heart healthy diet We will start on Zosyn IV and vancomycin IV for empiric coverage We will start on heparin 5000 subQ b.i.d. for DVT prophylaxis We will start on Famotidine 20 mg IV bid for GI prophylaxis We will replace electrolytes as needed per protocol Counseled on cigarette and cocaine use cessation We will request physical therapy service for eval and treat We will seek podiatry consultation We will follow up urine and wound culture We will start on insulin sliding scale AC & HS with hypoglycemia protocol We will add prn medication for fever,pain,cough , elevated BP nausea and vomiting We will request labs in am Further orders to follow depending on above results Case discussed with attending physician and came up with above treatment and plan of care. ATTESTATION BY PHYSICIAN I have seen and examined the patient. I reviewed the documentation, medical decision making, and treatment plan as noted by the resident provider above. I agree with the findings and plan of care. Papo Sargent MD OBI,CHRISTINE Tobias MD Jan 31, 2025 12:37
--- NOTE | 2025-01-31 12:58 | NUR ---
PATIENT RETURNED FROM PROCEDURE. NO SIGNS OF DISTRESS NOTED. VITALS ARE IN RANGE. POST OP VITALS STARTED.
--- NOTE | 2025-01-31 13:20 | EKG ---
[facility] Test Date: 2025-01-31 Test Time: 10:57:33 Pat Name: DAMION VENTURA Department: [facility] Room: 412 1 Gender: M [employer]: [id number] : 1970 Requested By: CARMELITA SERRANO Order Number: [id number] Reading MD: Giulia Gonzales Measurements Intervals [place] Rate: 75 P: 63 NV: 177 QRS: 69 QRSD: 143 T: 25 QT: 415 QTc: 463 Interpretive Statements Sinus rhythm Right bundle branch block ST elevation secondary to IVCD No previous ECG available for comparison Electronically Signed On 02-01-2025 15:06:03 CDT by Giulia Gonzales Please click the below link to view image of tracing.
[2025-01-31 20:45] LABS: GLUCOSE POC COMMENT Stat Lab Glu Request
[2025-02-01] VITALS: BP 164/93; PULSE 79; RESP 20; TEMP 97.7
[2025-02-01 04:00] VITALS: BP 171/85; PULSE 79; RESP 20; TEMP 97.6
[2025-02-01 04:38] LABS: BASOPHILS # (AUTO) 0.08 K/uL (0.00-0.20); BASOPHILS % (AUTO) 0.6 % (0.0-5.0); EOSINOPHILS # (AUTO) 0.06 K/uL (0.00-0.70); EOSINOPHILS % (AUTO) 0.5 % (0.0-8.0); HEMATOCRIT 36.1 % (42-54); IMMATURE GRANULOCYTE ABSOLUTE 0.08 K/uL (0-1); LYMPHOCYTES # (AUTO) 2.6 K/uL (1.0-4.8); LYMPHOCYTES % (AUTO) 19.9 % (21.0-51.0); MEAN CORPUSCULAR HEMOGLOBIN 30.1 pg (27.0-33.0); MEAN CORPUSCULAR HGB CONC 34.1 g/dL (32.0-36.0); MEAN CORPUSCULAR VOLUME 88.3 fL (79-99); MONOCYTES # (AUTO) 0.9 K/uL (0.1-1.0); MONOCYTES % (AUTO) 6.7 % (3.0-13.0); NEUTROPHILS # (AUTO) 9.3 K/uL (1.8-7.7); NEUTROPHILS % (AUTO) 71.7 % (40.0-77.0); PLATELET COUNT (AUTO) 410 K/uL (130-400); RED BLOOD CELL COUNT(AUTO) 4.09 MIL/uL (4.50-6.20); RED CELL DISTRIBUTION WIDTH 12.5 % (11.0-15.5)
[2025-02-01 04:53] LABS: ALBUMIN 1.4 g/dL (3.5-5.0); BILIRUBIN,TOTAL 0.2 mg/dL (0.2-1.0); CREATININE 1.3 mg/dL (0.5-1.3); POTASSIUM 3.7 mmol/L (3.5-5.1); TOTAL PROTEIN, SERUM 5.5 g/dL (6.0-8.3)
[2025-02-01] MEDS: hydrALAZine 20MG/ML VIAL IV PRN (05:19)
[2025-02-01 08:00] VITALS: BP 153/93; PULSE 86; RESP 19; TEMP 98.5; O2SAT 99
[2025-02-01] MEDS: amLODIPine 5 MG TAB PO SCH (09:30)
--- NOTE | 2025-02-01 10:29 | PN ---
[facility] PROGRESS NOTE Date of Service: Feb 01, 2025 Time of Service: 10:21 SUBJECTIVE: HPI Patient is a 54-year-old male with past medical history of diabetes, high cholesterol ,hypertension and medication noncompliance who presents to the ED for complaints of right great toe open wound which started 3 days ago. Patient stated that he noticed redness and swelling of the nail and he started applying Neosporin ointment for about 2 days and when he uncovered it days later, he noticed that it was swollen and was draining pus. Patient reports he has not been taking any medications for almost 8 months now and he has not been to a doctor as well.Patient denies any trauma,injury or insect bite on his right great toe.Patient also reports he has history of right great toe partial amputation. Patient denies pain at this time.Patient denies fever,chills,nausea and vomiting. 01/30/25: Lying in bed at the time of evaluation. Alert and oriented and in no obvious distress. Denies any fever, chills, nausea, vomiting or pain. Vital signs: T 98.4, P 90, R 18, BP 128/75, 96% on RA. Labs: Sodium 141, potassium 3.3 We will replace as per protocol, glucose 229, hemoglobin A1c 11.8, lactic acid 1.0, ammonia 40, BUN 18 , creatinine 1.1 A venous Doppler showed no evidence of deep venous thrombosis, x-ray of the right foot showed no acute displaced fracture or dislocation and arterial Doppler showed arteriosclerotic disease, abnormal monophasic arterial waveforms in the bilateral posterior tibial arteries, right anterior tibial and dorsalis pedis arteries with hyperemic flow. Consult was placed for Podiatry. Ordered MRI of the foot. Pending results. Patient is currently on Zosyn 3.375g q8hr . 01/31/25: Lying in bed at the time of evaluation. Alert and oriented and in no obvious distress. No acute over night events reported. Denies any fever, chills, nausea, vomiting or pain. Vital signs were unremarkable . Labs : WBC 11 down from 12.3 yesterday, Potassium 3.3, will replace as per protocol. MRI of the right foot showed findings suggestive of osteomyelitis in the first distal phalanx of the right foot. Patient has been seen by Dr Rose. Scheduled an amputation of the right great toe. 02/01/25: Lying in bed at the time of evaluation. Alert and oriented and in no obvious distress. No acute over night events reported. Patient is status post amputation of the right hallux at the metatarsophalangeal joint level by Dr Rose on 01/31/25. Denies any fever, chills, nausea, vomiting or pain. Vital signs were unremarkable. Labs : WBC 13 from 11 yesterday. Patients blood glucose was in the 400's last night. Changed from low dose to high dose sliding scale. Increased Glargine to 30 units SC HS. Will continue to monitor. Patients BP was elevated 171/85. Continue on Hydralazine 10 units IV as ordered. Added Amlodipine 5mg daily to schedule. Physical therapy to evaluate and treat. Consult was also placed for Infectious disease. Pending their recommendations. REVIEW OF SYSTEMS CONSTITUTIONAL: Denies fevers, chills, or night sweats. No unintentional weight loss reported. NEUROLOGICAL: Denies headache, amaurosis fugax, motor weakness, sensory deficit, vertigo/spinning sensation, gait abnormalities, or tremors. ENT: No hearing loss, otalgia, otorrhea, rhinitis, rhinorrhea, hoarseness, or sore throat. CARDIOVASCULAR: Denies any exertional angina, dyspnea on exertion, orthopnea, paroxysmal nocturnal dyspnea, palpitations, life-threatening arrhythmias, claudication. PULMONARY: Denies any shortness of breath, cough, phlegm/sputum, hemoptysis, pleuritic chest pain. SLEEP: Denies morning headaches, daytime somnolence or napping. Denies difficulty falling asleep, staying asleep, waking from sleep. Denies knowledge of snoring. GASTROINTESTINAL: Denies any type of dysphagia to either liquids or solids. Denies nausea, vomiting, pyrosis, early satiety, abdominal pain, diarrhea, constipation, or changes in stool consistency or caliber. Denies coffee-ground emesis, hematemesis, hematochezia, or melanotic stools. GENITOURINARY: Denies frequency, urgency, nocturia, hematuria or incontinence (Storage/Irritative symptoms.) Low urinary stream, straining to void, urinary intermittency or hesitancy, splitting of the voiding stream, terminal dribbling. ENDOCRINOLOGIC: Denies polyuria, polydipsia, polyphagia or heat/cold intolerances. HEMATOLOGIC: Denies thrombophilia/previous clots, or coagulopathy/bleeding disorders. ONCOLOGIC: Denies personal history of malignancy. DERMATOLOGIC: Denies rashes or pruritus. PSYCHIATRIC: Denies any suicidal or homicidal ideation. Denies hallucinations. PHYSICAL EXAM GENERAL APPEARANCE: The patient is awake, alert, and oriented, in no acute cardiopulmonary distress. NEUROLOGICAL: Cranial nerves II-XII grossly intact. Motor is 5/5 in bilateral upper and lower extremities proximal to distal. No sensory deficits. HEENT: Face is symmetric. Pupils are equal and reactive. Extraocular movements are intact. NECK: Supple. No JVD. No thyromegaly. No submental, submandibular, pre- /postauricular, occipital or supraclavicular lymphadenopathy. CHEST: Normal chest expansion. No Telemetry. LUNGS: Absence of any rales, rhonchi or any wheezing. CARDIOVASCULAR: Regular. S1 and S2 normal. No appreciable rubs, murmurs or gallops. ABDOMEN: Soft, nontender, and nondistended. There is no rebound, voluntary guarding, or rigidity. : Deferred. No Pinedo. EXTREMITIES: Edema to right foot No clubbing. Good capillary refill. SKIN: Open wound ulcer to right great toe Vital Signs (last 8hr) Date Time Temp Pulse Resp B/P (MAP) Pulse Ox O2 Delivery O2 Flow Rate FiO2 02/01/25 08:00 98.4 86 19 153/93 99 02/01/25 04:00 97.5 79 20 171/85 99 Room Air LABS: Laboratory: Test 02/01/25 04:55 02/01/25 04:07 01/31/25 20:37 01/31/25 11:08 Range/Units Whole Blood Glucose 218 H 70-110 MG/DL White Blood Count 13.0 H 4.8-10.8 K/uL Red Blood Count 4.09 L 4.50-6.20 MIL/uL Hemoglobin 12.3 L 14.0-18.0 g/dL Hematocrit 36.1 L 42-54 % Mean Corpuscular Volume 88.3 79-99 fL Mean Corpuscular Hemoglobin 30.1 27.0-33.0 pg Mean Corpuscular Hemoglobin Concent 34.1 32.0-36.0 g/dL Red Cell Distribution Width 12.5 11.0-15.5 % Platelet Count 410 H 130-400 K/uL Mean Platelet Volume 9.8 7.5-10.5 fL Immature Granulocyte % (Auto) 0.6 0-1 % Neutrophils (%) (Auto) 71.7 40.0-77.0 % Lymphocytes (%) (Auto) 19.9 L 21.0-51.0 % Monocytes (%) (Auto) 6.7 3.0-13.0 % Eosinophils (%) (Auto) 0.5 0.0-8.0 % Basophils (%) (Auto) 0.6 0.0-5.0 % Neutrophils # (Auto) 9.3 H 1.8-7.7 K/uL Lymphocytes # (Auto) 2.6 1.0-4.8 K/uL Monocytes # (Auto) 0.9 0.1-1.0 K/uL Eosinophils # (Auto) 0.06 0.00-0.70 K/uL Basophils # (Auto) 0.08 0.00-0.20 K/uL Absolute Immature Granulocyte (auto 0.08 0-1 K/uL Nucleated Red Blood Cells 0.0 0.0-0.19 % Sodium Level 138 136-145 mmol/L Potassium Level 3.7 3.5-5.1 mmol/L Chloride Level 105 101-111 mmol/L Carbon Dioxide Level 28 21-32 mmol/L Blood Urea Nitrogen 17 7-18 mg/dL Creatinine 1.3 0.5-1.3 mg/dL Glomerular Filtration Rate Calc 66 >90 mL/min Random Glucose 191 #H 70-105 mg/dL Total Calcium 8.5 8.5-10.1 mg/dL Total Bilirubin 0.2 0.2-1.0 mg/dL Aspartate Amino Transf (AST/SGOT) 7 L 10-37 U/L Alanine Aminotransferase (ALT/SGPT) 9 L 12-78 U/L Alkaline Phosphatase 84 50-136 U/L Total Protein 5.5 L 6.0-8.3 g/dL Albumin 1.4 L 3.5-5.0 g/dL Bedside Glucose Comment Protocol Initiated Bedside Glucose #2 Comment Notified Nurse Bedside Glucose #3 Comment Stat Lab Glu Request Urine Opiates Screen NEGATIVE NEGATIVE Urine Barbiturates Screen NEGATIVE NEGATIVE Urine Phencyclidine Screen NEGATIVE NEGATIVE Urine Amphetamines Screen NEGATIVE NEGATIVE Urine Benzodiazepines Screen NEGATIVE NEGATIVE Urine Cocaine Screen NEGATIVE NEGATIVE Urine Marijuana (THC) Screen NEGATIVE NEGATIVE Test 01/31/25 08:33 Range/Units Prothrombin Time 10.2 9.6-11.6 SEC Prothromb Time International Ratio 0.96 0.85-1.15 Activated Partial Thromboplast Time 29.2 26.3-35.5 SEC Magnesium Level 1.80 1.80-2.40 mg/dL Current Medications Medications (Trade) Dose Ordered Sig/Eva Route PRN Reason Start Time Stop Time Status Last Admin Dose Admin Acetaminophen (TYLenol 325MG TAB) 650 mg Q4H PRN PO MILD PAIN (1-3) 01/29/25 18:00 02/28/25 17:59 Acetaminophen (TYLenol 325MG TAB) 650 mg Q6H PRN PO MILD PAIN (1-3) 01/29/25 18:00 01/30/25 11:57 DC Acetaminophen (TYLenol 325MG TAB) 650 mg Q6H PRN PO TEMPERATURE GREATER THAN 101.5 01/29/25 18:00 02/28/25 17:59 Al Hydroxide/Mg Hydroxide (MAALox PLUS 30ML) 30 ml Q6H PRN PO INDIGESTION 01/29/25 18:00 02/28/25 17:59 Amlodipine Besylate (NorvASC 5MG TAB) 5 mg DAILY PO 02/01/25 09:00 03/03/25 08:59 02/01/25 09:30 5 MG Dextrose (D50w) 50 ml AD PRN IV HYPOGLYCEMIA PROTOCOL 01/29/25 18:00 02/28/25 17:59 Dextrose (D50w) 50 ml AD PRN IV HYPOGLYCEMIA PROTOCOL 01/29/25 20:00 01/30/25 11:57 DC Diphenhydramine HCl (BENAdryl INJ) 25 mg Q6H PRN IV SEVERE ITCHING/RASH 01/29/25 18:00 02/28/25 17:59 Famotidine (Pepcid 20mg Vial) 20 mg BID IV 01/29/25 21:00 02/28/25 20:59 02/01/25 08:12 20 MG Famotidine (Pepcid 20mg Vial) 20 mg BID PRN IV NAUSEA/VOMITING 01/29/25 18:00 01/30/25 11:55 DC Glucagon (Glucagon 1mg Kit) 1 mg AD PRN IM HYPOGLYCEMIA PROTOCOL 01/29/25 18:00 01/30/25 11:57 DC Glucagon (Glucagon 1mg Kit) 1 mg AD PRN IM HYPOGLYCEMIA PROTOCOL 01/29/25 20:00 02/28/25 19:59 Guaifenesin/ Dextromethorphan (RobiTUSSin DM 200/20MG 10ML) 10 ml Q4H PRN PO COUGH 01/29/25 18:00 02/28/25 17:59 Heparin Sodium (Porcine) (HEParin 5,000 UNIT VIAL) 5,000 unit BID SQ 01/29/25 21:00 02/28/25 20:59 02/01/25 08:13 5,000 UNIT Hydralazine HCl (APRESOLine 20MG INJ) 10 mg Q6H PRN IV For:SBP above 160;DBP above 90 01/29/25 18:00 02/28/25 17:59 02/01/25 05:19 10 MG Insulin Glargine (LANtus 100 UNITS/ML 10 ML VIAL) 20 units HS SQ 01/30/25 21:00 03/01/25 20:59 01/31/25 21:25 20 UNITS Insulin Human Regular (humuLIN R 100 UNIT/ML 3ML) INSULIN SLIDING SCAL... ACHS SQ 01/29/25 21:00 02/01/25 08:45 DC 02/01/25 06:51 6 UNIT Insulin Human Regular (humuLIN R 100 UNIT/ML 3ML) INSULIN SLIDING SCAL... ACHS SQ 02/01/25 11:30 03/03/25 11:29 Insulin Human Regular (humuLIN R 100 UNIT/ML 3ML) INSULIN SLIDING SCAL... Q4H SQ 01/29/25 20:00 02/01/25 08:45 DC 01/30/25 16:21 8 UNIT Ketorolac Tromethamine (toRADol) 15 mg Q8H PRN IV MODERATE PAIN (4-6) 01/29/25 18:00 02/03/25 17:59 02/01/25 04:28 15 MG Lactulose (Constulose 20gm/ 30ml Udcup) 20 gm BID PRN PO CONSTIPATION 01/29/25 18:00 02/28/25 17:59 Magnesium Sulfate 50 ml @ 0 mls/hr PROTOCOL PRN IV OTHER [SEE ORDER COMMENTS] 01/29/25 18:00 02/28/25 17:59 01/30/25 08:40 25 MLS/HR Morphine Sulfate (morPHINE 2MG SYG) 1 mg Q4H PRN IVP SEVERE PAIN (7-10) 01/29/25 18:00 02/05/25 17:59 01/29/25 22:25 1 MG Nitroglycerin (Nitrostat) 0.4 mg PROTOCOL PRN SL CHEST PAIN 01/29/25 18:00 02/28/25 17:59 Ondansetron HCl (zoFRAN 4MG INJ) 4 mg Q6H PRN IV NAUSEA/VOMITING 01/29/25 18:00 02/28/25 17:59 Oxycodone/ Acetaminophen (perCOCET) 1 tab Q6H PRN PO SEVERE PAIN (7-10) 01/29/25 18:00 01/30/25 11:57 DC 01/29/25 20:27 1 TAB Piperacillin Sod/ Tazobactam Sod 50 ml @ 12.5 mls/hr ZOSY8 IV 01/29/25 21:00 01/30/25 11:31 DC 01/30/25 04:55 12.5 MLS/HR Piperacillin Sod/ Tazobactam Sod (Zosyn 3.375gm+NS 50ml) 3.375 gm Q8H IVPB 01/30/25 12:00 02/09/25 11:59 02/01/25 04:28 3.375 GM Piperacillin Sod/ Tazobactam Sod (Zosyn 3.375gm+NS 50ml) 3.375 gm [id number] IV 01/29/25 21:00 01/30/25 11:58 DC 01/29/25 21:22 3.375 GM Potassium Chloride 100 ml @ 100 mls/hr AD PRN IV POTASSIUM PROTOCOL 01/29/25 18:00 02/28/25 17:59 Potassium Chloride (K-Dur/Klor-Con 20meq) 20 meq AD PRN PO POTASSIUM PROTOCOL 01/29/25 18:00 02/28/25 17:59 02/01/25 08:07 20 MEQ Potassium Chloride (KCl 10% Elixir 20meq/15ml) 20 meq AD PRN PO POTASSIUM PROTOCOL 01/29/25 18:00 02/28/25 17:59 Sodium Chloride 1,000 ml @ 0 mls/hr ONCE IV 01/29/25 18:00 01/30/25 17:59 DC 01/29/25 20:28 1,200 MLS/HR Sodium Chloride (NS 50ml) 50 ml AD IV 01/30/25 13:00 01/30/25 11:58 DC Vancomycin HCl 250 ml @ 125 mls/hr ONCE IV 01/29/25 18:00 01/29/25 19:59 DC Vancomycin HCl (Vancomycin 1g/ 250ml Kit) 1 gm ONCE IV 01/29/25 17:30 01/29/25 23:59 DC 01/29/25 20:20 1 GM Zolpidem Tartrate (AmbIEN) 5 mg HS PRN PO INSOMNIA 01/29/25 18:00 02/28/25 17:59 DIAGNOSTICS / RADIOLOGY: [ ] ASSESSMENT: s/p Amputation of Right Hallux by Dr Rose on 01/31/25 Right osteomyelitis as per MRI on 01/31/25 POA Infected right great toe wound ulcer POA Uncontrolled hypertension POA Hyperglycemia secondary to uncontrolled diabetes POA Normocytic normochromic anemia POA Pseudohyponatremia due to hyperglycemia POA Acute kidney injury POA Hypokalemia POA Nicotine dependence POA Positive cocaine use POA Medication noncompliance POA Hyperlipidemia POA PLAN: s/p Amputation of Right Hallux by Dr Rose on 01/31/25 Right osteomyelitis as per MRI on 01/31/25 POA Infected right great toe wound ulcer POA *Physical therapy to evaluate and ambulate. *Consult for podiatry has been placed. *MRI ordered to rule out osteomyelitis *Continue with Zosyn 3.375g IV as ordered. Uncontrolled hypertension POA *Amlodipine 5mg PO daily ordered *Continue with Hydralazine 10 mg IV for Sys BP >160, Rosette >90 *Continue with all medications as ordered. *Follow hemodynamics. *Vital signs per facility protocol *Continue on heart healthy diet Hyperglycemia secondary to uncontrolled diabetes POA *Changed Low dose to high dose insulin sliding scale *Maintain blood glucose between 70-110 at all times *Insulin Glargine 20 units SC hs ordered. *Insulin sliding scale for blood glucose management *Hyperglycemia and hypoglycemia protocols in place Normocytic normochromic anemia POA *Monitor H & H. Keep Hgb > 7 *Transfuse 1 unit of PRBC for Hgb < 7 Pseudohyponatremia due to hyperglycemia POA Hypokalemia POA * Monitor and replace electrolytes as per protocol Acute kidney injury POA *Strict monitoring of intake and output *Daily weights *Discontinue all nephrotoxic agents *Monitor electrolytes and replace as needed *Goal urine output of 30 ml/h or 0.5ml/kg/hr *Medications to be dosed according to renal function *Avoid the use of contrast if possible. Others *Continue on heparin 5000 subQ b.i.d. for DVT prophylaxis *Continue on Famotidine 20 mg IV bid for GI prophylaxis *Counseled on cigarette and cocaine use cessation We will admit patient in medical surgical floor We will start on heart healthy diet We will start on Zosyn IV and vancomycin IV for empiric coverage We will start on heparin 5000 subQ b.i.d. for DVT prophylaxis We will start on Famotidine 20 mg IV bid for GI prophylaxis We will replace electrolytes as needed per protocol Counseled on cigarette and cocaine use cessation We will request physical therapy service for eval and treat We will seek podiatry consultation We will follow up urine and wound culture We will start on insulin sliding scale AC & HS with hypoglycemia protocol We will add prn medication for fever,pain,cough , elevated BP nausea and vomit ing We will request labs in am Further orders to follow depending on above results Case discussed with attending physician and came up with above treatment and plan of care. ATTESTATION BY PHYSICIAN I have seen and examined the patient. I reviewed the documentation, medical decision making, and treatment plan as noted by the resident provider above. I agree with the findings and plan of care. Papo Sargent MD OBI,CHRISTINE Tobias MD Feb 01, 2025 10:29
--- NOTE | 2025-02-01 11:00 | NUR ---
YRIS FROM PT STATED THAT THE PATIENT DID NOT WANT TO COMPLY WITH PHYSICAL THERAPY. WILL GO SPEAK TO PATIENT REGARDING THIS.
[2025-02-01] MEDS: INSULIN humuLIN R 100 UNIT/ML 3ML SQ SCH (11:30)
--- NOTE | 2025-02-01 11:30 | NUR ---
Spoke to patient who stated he has been getting up to walk to the bathroom by himself no AD. Explained to patient the need to be NWB to R foot for healing. Educated patient PT can help with that. Patient refused stating he is fine walking to the bathroom by himself. Reinforced no weight onto foot and patient stated he has been putting weigh ton his heel. Informed Dorothy of patient refusal to participate with PT. Addendum: 02/01/25 at 1238 by YRIS POLANCO PT Amended: Links added.
[2025-02-01 12:00] VITALS: BP_SYST 131; BP_SYST 173; BP_DIAS 90; BP_DIAS 93; PULSE 105; PULSE 78; RESP 19; TEMP 97.9; TEMP 98.1
--- NOTE | 2025-02-01 12:00 | NUR ---
SPOKE WITH PATIENT REGARDING PHYSICAL THERAPY AND PATIENT STATED HE DID NOT WANT TO WORK WITH PT TODAY. EDUCATED ON THE IMPORTANCE OF PHYSICAL THERAPY AND PATIENT AGREED TO WORK WITH PHYSICAL THERAPY TOMORROW.
--- NOTE | 2025-02-01 12:24 | PN ---
INFECTIOUS DISEASE FOLLOWUP NOTE DATE OF SERVICE: 02/01/2025 SUBJECTIVE: The patient is seen and examined at bedside. No fever or chills. Complaining of pain to the right foot. Tolerating orally. No cough. No shortness of breath. No palpitations or orthopnea. PHYSICAL EXAMINATION: VITAL SIGNS: Temperature 96.8. EYES: No icterus. Pupils equal and reactive. HENT: No oral thrush seen. Moist oral mucosa. NECK: Supple. No JVD or thyromegaly. LUNGS: Good air entry. No rales. No rhonchi. CARDIOVASCULAR: S1 and S2, regular. No murmur heard. ABDOMEN: Full, soft and nontender. Bowel sound is present. CENTRAL NERVOUS SYSTEM: Awake, alert, oriented x 3. No focal deficits. SKIN: No rashes. No itchiness. LYMPHATIC: There is right inguinal lymphadenopathy. BACK: No deformity. No pressure ulcer. EXTREMITIES: Status post right great toe amputation. LABORATORY DATA: Right foot wound culture grew MSSA. ASSESSMENT: A 54-year-old male with multiple problems including: * Right great toe osteomyelitis, status post amputation. * Diabetic foot ulcer. * Cellulitis. PLAN: * Continue wound care. * Continue pain management. * Continue antibiotic. * Continue nutritional support. * Continue GI prophylaxis. * Monitor electrolyte. * The patient will be followed up closely. TID: [id number] RECEIPT: [id number]
[2025-02-01 16:00] VITALS: BP 165/99; PULSE 79; RESP 19; TEMP 98
[2025-02-01 20:00] VITALS: BP 155/95; PULSE 75; RESP 18; TEMP 98.3
[2025-02-02] VITALS (8 sets, daily range): BP systolic 152–170; BP diastolic 89–94; PULSE 71–80; RESP 18–20; TEMP 97.5–98.3; O2SAT 97–98
[2025-02-02 04:26] LABS: BASOPHILS # (AUTO) 0.09 K/uL (0.00-0.20); BASOPHILS % (AUTO) 0.8 % (0.0-5.0); EOSINOPHILS # (AUTO) 0.19 K/uL (0.00-0.70); EOSINOPHILS % (AUTO) 1.7 % (0.0-8.0); IMMATURE GRANULOCYTE ABSOLUTE 0.07 K/uL (0-1); LYMPHOCYTES # (AUTO) 4.4 K/uL (1.0-4.8); LYMPHOCYTES % (AUTO) 38.6 % (21.0-51.0); MEAN CORPUSCULAR HEMOGLOBIN 30.1 pg (27.0-33.0); MEAN CORPUSCULAR HGB CONC 33.9 g/dL (32.0-36.0); MEAN CORPUSCULAR VOLUME 88.9 fL (79-99); MONOCYTES # (AUTO) 0.8 K/uL (0.1-1.0); MONOCYTES % (AUTO) 7.4 % (3.0-13.0); NEUTROPHILS # (AUTO) 5.8 K/uL (1.8-7.7); NEUTROPHILS % (AUTO) 50.9 % (40.0-77.0); PLATELET COUNT (AUTO) 441 K/uL (130-400); RED BLOOD CELL COUNT(AUTO) 4.05 MIL/uL (4.50-6.20); RED CELL DISTRIBUTION WIDTH 12.8 % (11.0-15.5); WHITE BLOOD COUNT (AUTO) 11.3 K/uL (4.8-10.8)
[2025-02-02 04:48] LABS: ALBUMIN 1.4 g/dL (3.5-5.0); BILIRUBIN,TOTAL 0.2 mg/dL (0.2-1.0); CREATININE 1.2 mg/dL (0.5-1.3); POTASSIUM 3.5 mmol/L (3.5-5.1); TOTAL PROTEIN, SERUM 5.7 g/dL (6.0-8.3)
--- NOTE | 2025-02-02 11:11 | NUR ---
[facility] Follow-up: Patient re-assessed by wound healing team. See wound assessment. Assessment and recommendations provided to primary nurse. Education provided. Wound care done. Addendum: 02/02/25 at 1218 by SANTIAGO HAM RN RN/ Amended: Links added.
--- NOTE | 2025-02-02 12:38 | PN ---
[facility] PROGRESS NOTE Date of Service: Feb 02, 2025 Time of Service: 12:31 SUBJECTIVE: HPI Patient is a 54-year-old male with past medical history of diabetes, high cholesterol ,hypertension and medication noncompliance who presents to the ED for complaints of right great toe open wound which started 3 days ago. Patient stated that he noticed redness and swelling of the nail and he started applying Neosporin ointment for about 2 days and when he uncovered it days later, he noticed that it was swollen and was draining pus. Patient reports he has not been taking any medications for almost 8 months now and he has not been to a doctor as well.Patient denies any trauma,injury or insect bite on his right great toe.Patient also reports he has history of right great toe partial amputation. Patient denies pain at this time.Patient denies fever,chills,nausea and vomiting. 01/30/25: Lying in bed at the time of evaluation. Alert and oriented and in no obvious distress. Denies any fever, chills, nausea, vomiting or pain. Vital signs: T 98.4, P 90, R 18, BP 128/75, 96% on RA. Labs: Sodium 141, potassium 3.3 We will replace as per protocol, glucose 229, hemoglobin A1c 11.8, lactic acid 1.0, ammonia 40, BUN 18 , creatinine 1.1 A venous Doppler showed no evidence of deep venous thrombosis, x-ray of the right foot showed no acute displaced fracture or dislocation and arterial Doppler showed arteriosclerotic disease, abnormal monophasic arterial waveforms in the bilateral posterior tibial arteries, right anterior tibial and dorsalis pedis arteries with hyperemic flow. Consult was placed for Podiatry. Ordered MRI of the foot. Pending results. Patient is currently on Zosyn 3.375g q8hr . 01/31/25: Lying in bed at the time of evaluation. Alert and oriented and in no obvious distress. No acute over night events reported. Denies any fever, chills, nausea, vomiting or pain. Vital signs were unremarkable . Labs : WBC 11 down from 12.3 yesterday, Potassium 3.3, will replace as per protocol. MRI of the right foot showed findings suggestive of osteomyelitis in the first distal phalanx of the right foot. Patient has been seen by Dr Rose. Scheduled an amputation of the right great toe. 02/01/25: Lying in bed at the time of evaluation. Alert and oriented and in no obvious distress. No acute over night events reported. Patient is status post amputation of the right hallux at the metatarsophalangeal joint level by Dr Rose. Post op day 1. Denies any fever, chills, nausea, vomiting or pain. Vital signs were unremarkable. Labs : WBC 13 from 11 yesterday. Patients blood glucose was in the 400's last night. Changed from low dose to high dose sliding scale. Increased Glargine to 30 units SC HS. Will continue to monitor. Patie nts BP was elevated 171/85. Continue on Hydralazine 10 units IV as ordered. Added Amlodipine 5mg daily to schedule. Physical therapy to evaluate and treat. Consult was also placed for Infectious disease. Pending their recommendations. 02/02/25: Lying in bed at the time of evaluation. Alert and oriented and in no obvious distress. No acute over night events reported. Patient is status post amputation of the right hallux at the metatarsophalangeal joint level by Dr Rose. Post op day 2. Denies any fever, chills, nausea, vomiting or pain. Vital signs were unremarkable. WBC is down to 11.3 from 13 yesterday. Blood glucose this morning was 87 and BP 155/89. Patient is ambulating around the unit in clutches with assistance of PT. Infectious disease is following. Pending their recommendations as per discharge. Will continue to monitor. REVIEW OF SYSTEMS CONSTITUTIONAL: Denies fevers, chills, or night sweats. No unintentional weight loss reported. NEUROLOGICAL: Denies headache, amaurosis fugax, motor weakness, sensory deficit, vertigo/spinning sensation, gait abnormalities, or tremors. ENT: No hearing loss, otalgia, otorrhea, rhinitis, rhinorrhea, hoarseness, or sore throat. CARDIOVASCULAR: Denies any exertional angina, dyspnea on exertion, orthopnea, paroxysmal nocturnal dyspnea, palpitations, life-threatening arrhythmias, claudication. PULMONARY: Denies any shortness of breath, cough, phlegm/sputum, hemoptysis, pleuritic chest pain. SLEEP: Denies morning headaches, daytime somnolence or napping. Denies difficu lty falling asleep, staying asleep, waking from sleep. Denies knowledge of snoring. GASTROINTESTINAL: Denies any type of dysphagia to either liquids or solids. Denies nausea, vomiting, pyrosis, early satiety, abdominal pain, diarrhea, constipation, or changes in stool consistency or caliber. Denies coffee-ground emesis, hematemesis, hematochezia, or melanotic stools. GENITOURINARY: Denies frequency, urgency, nocturia, hematuria or incontinence (Storage/Irritative symptoms.) Low urinary stream, straining to void, urinary intermittency or hesitancy, splitting of the voiding stream, terminal dribbling. ENDOCRINOLOGIC: Denies polyuria, polydipsia, polyphagia or heat/cold intol erances. HEMATOLOGIC: Denies thrombophilia/previous clots, or coagulopathy/bleeding disorders. ONCOLOGIC: Denies personal history of malignancy. DERMATOLOGIC: Denies rashes or pruritus. PSYCHIATRIC: Denies any suicidal or homicidal ideation. Denies hallucinations. PHYSICAL EXAM GENERAL APPEARANCE: The patient is awake, alert, and oriented, in no acute cardiopulmonary distress. NEUROLOGICAL: Cranial nerves II-XII grossly intact. Motor is 5/5 in bilateral upper and lower extremities proximal to distal. No sensory deficits. HEENT: Face is symmetric. Pupils are equal and reactive. Extraocular movements are intact. NECK: Supple. No JVD. No thyromegaly. No submental, submandibular, pre- /postauricular, occipital or supraclavicular lymphadenopathy. CHEST: Normal chest expansion. No Telemetry. LUNGS: Absence of any rales, rhonchi or any wheezing. CARDIOVASCULAR: Regular. S1 and S2 normal. No appreciable rubs, murmurs or gallops. ABDOMEN: Soft, nontender, and nondistended. There is no rebound, voluntary guarding, or rigidity. : Deferred. No Pinedo. EXTREMITIES: Edema to right foot No clubbing. Good capillary refill. SKIN: Open wound ulcer to right great toe Vital Signs (last 8hr) Date Time Temp Pulse Resp B/P (MAP) Pulse Ox O2 Delivery O2 Flow Rate FiO2 02/02/25 12:08 98.1 80 19 155/94 99 Room Air 02/02/25 08:00 97.5 78 19 163/91 98 Room Air LABS: Laboratory: Test 02/02/25 10:51 02/02/25 04:04 01/31/25 20:37 Range/Units Whole Blood Glucose 161 #H 70-110 MG/DL White Blood Count 11.3 H 4.8-10.8 K/uL Red Blood Count 4.05 L 4.50-6.20 MIL/uL Hemoglobin 12.2 L 14.0-18.0 g/dL Hematocrit 36.0 L 42-54 % Mean Corpuscular Volume 88.9 79-99 fL Mean Corpuscular Hemoglobin 30.1 27.0-33.0 pg Mean Corpuscular Hemoglobin Concent 33.9 32.0-36.0 g/dL Red Cell Distribution Width 12.8 11.0-15.5 % Platelet Count 441 H 130-400 K/uL Mean Platelet Volume 9.7 7.5-10.5 fL Immature Granulocyte % (Auto) 0.6 0-1 % Neutrophils (%) (Auto) 50.9 40.0-77.0 % Lymphocytes (%) (Auto) 38.6 21.0-51.0 % Monocytes (%) (Auto) 7.4 3.0-13.0 % Eosinophils (%) (Auto) 1.7 0.0-8.0 % Basophils (%) (Auto) 0.8 0.0-5.0 % Neutrophils # (Auto) 5.8 1.8-7.7 K/uL Lymphocytes # (Auto) 4.4 1.0-4.8 K/uL Monocytes # (Auto) 0.8 0.1-1.0 K/uL Eosinophils # (Auto) 0.19 0.00-0.70 K/uL Basophils # (Auto) 0.09 0.00-0.20 K/uL Absolute Immature Granulocyte (auto 0.07 0-1 K/uL Nucleated Red Blood Cells 0.0 0.0-0.19 % Sodium Level 141 136-145 mmol/L Potassium Level 3.5 3.5-5.1 mmol/L Chloride Level 105 101-111 mmol/L Carbon Dioxide Level 33 H 21-32 mmol/L Blood Urea Nitrogen 13 7-18 mg/dL Creatinine 1.2 0.5-1.3 mg/dL Glomerular Filtration Rate Calc 72 >90 mL/min Random Glucose 87 # 70-105 mg/dL Total Calcium 8.1 L 8.5-10.1 mg/dL Total Bilirubin 0.2 0.2-1.0 mg/dL Aspartate Amino Transf (AST/SGOT) 7 L 10-37 U/L Alanine Aminotransferase (ALT/SGPT) 15 # 12-78 U/L Alkaline Phosphatase 75 50-136 U/L Total Protein 5.7 L 6.0-8.3 g/dL Albumin 1.4 L 3.5-5.0 g/dL Bedside Glucose Comment Protocol Initiated Bedside Glucose #2 Comment Notified Nurse Bedside Glucose #3 Comment Stat Lab Glu Request Current Medications Medications (Trade) Dose Ordered Sig/Eva Route PRN Reason Start Time Stop Time Status Last Admin Dose Admin Acetaminophen (TYLenol 325MG TAB) 650 mg Q4H PRN PO MILD PAIN (1-3) 01/29/25 18:00 02/28/25 17:59 Acetaminophen (TYLenol 325MG TAB) 650 mg Q6H PRN PO MILD PAIN (1-3) 01/29/25 18:00 01/30/25 11:57 DC Acetaminophen (TYLenol 325MG TAB) 650 mg Q6H PRN PO TEMPERATURE GREATER THAN 101.5 01/29/25 18:00 02/28/25 17:59 Al Hydroxide/Mg Hydroxide (MAALox PLUS 30ML) 30 ml Q6H PRN PO INDIGESTION 01/29/25 18:00 02/28/25 17:59 Amlodipine Besylate (NorvASC 5MG TAB) 5 mg DAILY PO 02/01/25 09:00 03/03/25 08:59 02/02/25 08:37 5 MG Dextrose (D50w) 50 ml AD PRN IV HYPOGLYCEMIA PROTOCOL 01/29/25 18:00 02/28/25 17:59 Dextrose (D50w) 50 ml AD PRN IV HYPOGLYCEMIA PROTOCOL 01/29/25 20:00 01/30/25 11:57 DC Diphenhydramine HCl (BENAdryl INJ) 25 mg Q6H PRN IV SEVERE ITCHING/RASH 01/29/25 18:00 02/28/25 17:59 Famotidine (Pepcid 20mg Vial) 20 mg BID IV 01/29/25 21:00 02/28/25 20:59 02/02/25 08:37 20 MG Famotidine (Pepcid 20mg Vial) 20 mg BID PRN IV NAUSEA/VOMITING 01/29/25 18:00 01/30/25 11:55 DC Glucagon (Glucagon 1mg Kit) 1 mg AD PRN IM HYPOGLYCEMIA PROTOCOL 01/29/25 18:00 01/30/25 11:57 DC Glucagon (Glucagon 1mg Kit) 1 mg AD PRN IM HYPOGLYCEMIA PROTOCOL 01/29/25 20:00 02/28/25 19:59 Guaifenesin/ Dextromethorphan (RobiTUSSin DM 200/20MG 10ML) 10 ml Q4H PRN PO COUGH 01/29/25 18:00 02/28/25 17:59 Heparin Sodium (Porcine) (HEParin 5,000 UNIT VIAL) 5,000 unit BID SQ 01/29/25 21:00 02/28/25 20:59 02/02/25 08:51 5,000 UNIT Hydralazine HCl (APRESOLine 20MG INJ) 10 mg Q6H PRN IV For:SBP above 160;DBP above 90 01/29/25 18:00 02/28/25 17:59 02/01/25 12:35 10 MG Insulin Glargine (LANtus 100 UNITS/ML 10 ML VIAL) 20 units HS SQ 01/30/25 21:00 03/01/25 20:59 02/01/25 20:34 20 UNITS Insulin Human Regular (humuLIN R 100 UNIT/ML 3ML) INSULIN SLIDING SCAL... ACHS SQ 01/29/25 21:00 02/01/25 08:45 DC 02/01/25 06:51 6 UNIT Insulin Human Regular (humuLIN R 100 UNIT/ML 3ML) INSULIN SLIDING SCAL... ACHS SQ 02/01/25 11:30 03/03/25 11:29 02/02/25 12:14 4 UNIT Insulin Human Regular (humuLIN R 100 UNIT/ML 3ML) INSULIN SLIDING SCAL... Q4H SQ 01/29/25 20:00 02/01/25 08:45 DC 01/30/25 16:21 8 UNIT Ketorolac Tromethamine (toRADol) 15 mg Q8H PRN IV MODERATE PAIN (4-6) 01/29/25 18:00 02/03/25 17:59 02/02/25 12:10 15 MG Lactulose (Constulose 20gm/ 30ml Udcup) 20 gm BID PRN PO CONSTIPATION 01/29/25 18:00 02/28/25 17:59 Magnesium Sulfate 50 ml @ 0 mls/hr PROTOCOL PRN IV OTHER [SEE ORDER COMMENTS] 01/29/25 18:00 02/28/25 17:59 01/30/25 08:40 25 MLS/HR Morphine Sulfate (morPHINE 2MG SYG) 1 mg Q4H PRN IVP SEVERE PAIN (7-10) 01/29/25 18:00 02/05/25 17:59 02/02/25 08:38 1 MG Nitroglycerin (Nitrostat) 0.4 mg PROTOCOL PRN SL CHEST PAIN 01/29/25 18:00 02/28/25 17:59 Ondansetron HCl (zoFRAN 4MG INJ) 4 mg Q6H PRN IV NAUSEA/VOMITING 01/29/25 18:00 02/28/25 17:59 Oxycodone/ Acetaminophen (perCOCET) 1 tab Q6H PRN PO SEVERE PAIN (7-10) 01/29/25 18:00 01/30/25 11:57 DC 01/29/25 20:27 1 TAB Piperacillin Sod/ Tazobactam Sod 50 ml @ 12.5 mls/hr ZOSY8 IV 01/29/25 21:00 01/30/25 11:31 DC 01/30/25 04:55 12.5 MLS/HR Piperacillin Sod/ Tazobactam Sod (Zosyn 3.375gm+NS 50ml) 3.375 gm Q8H IVPB 01/30/25 12:00 02/09/25 11:59 02/02/25 12:03 3.375 GM Piperacillin Sod/ Tazobactam Sod (Zosyn 3.375gm+NS 50ml) 3.375 gm ZOSY12 IV 01/29/25 21:00 01/30/25 11:58 DC 01/29/25 21:22 3.375 GM Potassium Chloride 100 ml @ 100 mls/hr AD PRN IV POTASSIUM PROTOCOL 01/29/25 18:00 02/28/25 17:59 Potassium Chloride (K-Dur/Klor-Con 20meq) 20 meq AD PRN PO POTASSIUM PROTOCOL 01/29/25 18:00 02/28/25 17:59 02/02/25 12:04 20 MEQ Potassium Chloride (KCl 10% Elixir 20meq/15ml) 20 meq AD PRN PO POTASSIUM PROTOCOL 01/29/25 18:00 02/28/25 17:59 Sodium Chloride 1,000 ml @ 0 mls/hr ONCE IV 01/29/25 18:00 01/30/25 17:59 DC 01/29/25 20:28 1,200 MLS/HR Sodium Chloride (NS 50ml) 50 ml AD IV 01/30/25 13:00 01/30/25 11:58 DC Vancomycin HCl 250 ml @ 125 mls/hr ONCE IV 01/29/25 18:00 01/29/25 19:59 DC Vancomycin HCl (Vancomycin 1g/ 250ml Kit) 1 gm ONCE IV 01/29/25 17:30 01/29/25 23:59 DC 01/29/25 20:20 1 GM Zolpidem Tartrate (AmbIEN) 5 mg HS PRN PO INSOMNIA 01/29/25 18:00 02/28/25 17:59 DIAGNOSTICS / RADIOLOGY: [ ] ASSESSMENT: s/p Amputation of Right Hallux by Dr Rose on 01/31/25 Right osteomyelitis as per MRI on 01/31/25 POA Infected right great toe wound ulcer POA Uncontrolled hypertension POA Hyperglycemia secondary to uncontrolled diabetes POA Normocytic normochromic anemia POA hyponatremia due to hyperglycemia POA Acute kidney injury POA Hypokalemia POA Nicotine dependence POA Positive cocaine use POA Medication noncompliance POA Hyperlipidemia POA PLAN: s/p Amputation of Right Hallux by Dr Rose on 01/31/25 Right osteomyelitis as per MRI on 01/31/25 POA Infected right great toe wound ulcer POA *Physical therapy to evaluate and ambulate. *Consult for podiatry has been placed. *MRI ordered to rule out osteomyelitis *Continue with Zosyn 3.375g IV as ordered. Uncontrolled hypertension POA *Amlodipine 5mg PO daily ordered *Continue with Hydralazine 10 mg IV for Sys BP >160, Rosette >90 *Continue with all medications as ordered. *Follow hemodynamics. *Vital signs per facility protocol *Continue on heart healthy diet Hyperglycemia secondary to uncontrolled diabetes POA *Changed Low dose to high dose insulin sliding scale *Maintain blood glucose between 70-110 at all times *Insulin Glargine 20 units SC hs ordered. *Insulin sliding scale for blood glucose management *Hyperglycemia and hypoglycemia protocols in place Normocytic normochromic anemia POA *Monitor H & H. Keep Hgb > 7 *Transfuse 1 unit of PRBC for Hgb < 7 hyponatremia due to hyperglycemia POA Hypokalemia POA * Monitor and replace electrolytes as per protocol Acute kidney injury POA *Strict monitoring of intake and output *Daily weights *Discontinue all nephrotoxic agents *Monitor electrolytes and replace as needed *Goal urine output of 30 ml/h or 0.5ml/kg/hr *Medications to be dosed according to renal function *Avoid the use of contrast if possible. Others *Continue on heparin 5000 subQ b.i.d. for DVT prophylaxis *Continue on Famotidine 20 mg IV bid for GI prophylaxis *Counseled on cigarette and cocaine use cessation Case discussed with attending physician Dr Yordy King md and came up with above treatment and plan of care. ATTESTATION BY PHYSICIAN I have seen and examined the patient. I reviewed the documentation, medical decision making, and treatment plan as noted by the resident provider above. I agree with the findings and plan of care. Sharri King MD OBI,CHRISTINE Tobias MD Feb 02, 2025 12:38 YORDY KING MD Feb 03, 2025 12:07
--- NOTE | 2025-02-02 14:08 | PN ---
INFECTIOUS DISEASE PROGRESS NOTE Date of Service: Feb 02, 2025 SUBJECTIVE: This is a 54-year-old male patient who is status post right great toe amputation on 01/31/2025 due to diabetic ulcer with osteomyelitis. The right foot wound cultures results came back positive for Staphylococcus aureus and Acinetobacter Lwoffii. WBC trended down to 11.3 and no fever, temperature is 98.1. Patient currently remains on Zosyn IV every 8 hours. Reported that pain is tolerable. From Infectious Disease standpoint patient can be discharged to home on Bactrim p.o. b.i.d. x 10 days when ready to discharge. Prescription was written. PHYSICAL EXAM EYES: Anicteric. Pupils equal and reactive. HENT: No oral thrush seen, moist Oral mucosa NECK: Supple, no JVD or thyromegaly. LUNGS: Good air entry. No rales, no rhonchi. CARDIOVASCULAR: S1, S2 regular. No murmur heard. ABDOMEN: Soft, non tender, bowel sounds present, no organomegaly CENTRAL NERVOUS SYSTEM: Awake, alert, oriented x 3. No focal deficits. SKIN: No rashes, no swelling. LYMPHATICS: No peripheral lymphadenopathy MUSCULOSKELETAL: No joint swelling, erythema or tenderness. EXTREMITIES: No cyanosis or clubbing. Right great toe amputation. BACK: No deformity, no pressure ulcer. GENITOURINARY: No dysuria or hematuria Vital Sign (Last 12 Hours) 02/02/25 02/02/25 02/02/25 04:00 08:00 12:08 Temp 97.5 97.5 98.1 Pulse 73 78 80 Resp 18 19 19 B/P (MAP) 155/89 163/91 155/94 Pulse Ox 99 98 99 O2 Delivery Room Air Room Air Room Air Intake & Output (last 24hrs) 02/01/25 02/01/25 02/02/25 14:59 22:59 06:59 Intake Total 1200 ml 400 ml 200.0 ml Balance 1200 ml 400 ml 200.0 ml LABS: Laboratory: Test 02/02/25 10:51 02/02/25 04:04 01/31/25 20:37 Range/Units Whole Blood Glucose 161 #H 70-110 MG/DL White Blood Count 11.3 H 4.8-10.8 K/uL Red Blood Count 4.05 L 4.50-6.20 MIL/uL Hemoglobin 12.2 L 14.0-18.0 g/dL Hematocrit 36.0 L 42-54 % Mean Corpuscular Volume 88.9 79-99 fL Mean Corpuscular Hemoglobin 30.1 27.0-33.0 pg Mean Corpuscular Hemoglobin Concent 33.9 32.0-36.0 g/dL Red Cell Distribution Width 12.8 11.0-15.5 % Platelet Count 441 H 130-400 K/uL Mean Platelet Volume 9.7 7.5-10.5 fL Immature Granulocyte % (Auto) 0.6 0-1 % Neutrophils (%) (Auto) 50.9 40.0-77.0 % Lymphocytes (%) (Auto) 38.6 21.0-51.0 % Monocytes (%) (Auto) 7.4 3.0-13.0 % Eosinophils (%) (Auto) 1.7 0.0-8.0 % Basophils (%) (Auto) 0.8 0.0-5.0 % Neutrophils # (Auto) 5.8 1.8-7.7 K/uL Lymphocytes # (Auto) 4.4 1.0-4.8 K/uL Monocytes # (Auto) 0.8 0.1-1.0 K/uL Eosinophils # (Auto) 0.19 0.00-0.70 K/uL Basophils # (Auto) 0.09 0.00-0.20 K/uL Absolute Immature Granulocyte (auto 0.07 0-1 K/uL Nucleated Red Blood Cells 0.0 0.0-0.19 % Sodium Level 141 136-145 mmol/L Potassium Level 3.5 3.5-5.1 mmol/L Chloride Level 105 101-111 mmol/L Carbon Dioxide Level 33 H 21-32 mmol/L Blood Urea Nitrogen 13 7-18 mg/dL Creatinine 1.2 0.5-1.3 mg/dL Glomerular Filtration Rate Calc 72 >90 mL/min Random Glucose 87 # 70-105 mg/dL Total Calcium 8.1 L 8.5-10.1 mg/dL Total Bilirubin 0.2 0.2-1.0 mg/dL Aspartate Amino Transf (AST/SGOT) 7 L 10-37 U/L Alanine Aminotransferase (ALT/SGPT) 15 # 12-78 U/L Alkaline Phosphatase 75 50-136 U/L Total Protein 5.7 L 6.0-8.3 g/dL Albumin 1.4 L 3.5-5.0 g/dL Bedside Glucose Comment Protocol Initiated Bedside Glucose #2 Comment Notified Nurse Bedside Glucose #3 Comment Stat Lab Glu Request DIAGNOSTICS / RADIOLOGY: PATIENT: DAMION VENTURA ACCT: [id number] LOC: 4B U: [id number] AGE/SX: 54/M ROOM: [facility] RE01/29/[address]: ELKIN ZUNIGA MD : 1970 BED: 1 DIS: STATUS: ADM IN TLOC: SPEC: [id number] ANDI: 01/29/25-2014 STATUS: COMP REQ: [id number] RECD: 01/29/25-[address] [facility] [address]: DANIEL WILKINS MD SOURCE: FOOT ENTR: 01/29/25-[address] [facility] [address]: SELF,REFERRAL [facility]: FOOT RIGHT ORDERED: AEROBIC CULTURE ------- ----- Procedure Result Collin Date-Time AEROBIC CULTURE Final 02/02/25-1033 MRL COLONY DESCRIPTION: REPORT 1: 2+ GRAM POSITIVE COCCI IN CLUSTERS STAPHYLOCOCCUS AUREUS SENSITIVITY TO FOLLOW 1+ GRAM NEGATIVE RODS IDENTIFICATION AND SENSITIVITY TO FOLLOW REPORT 2: NO FURTHER WORK-UP DONE ACINETOBACTER LWOFFII STAPHYLOCOCCUS AUREUS ACI LWOFFI S. AUREUS M.I.C. RX M.I.C. RX --------- ---- --------- ---- CEFTAZIDIME <=1 S CEFTRIAXONE <=1 S ERYTHROMYCIN <=0.5 S GENTAMICIN <=2 S >8 R LEVOFLOXACIN <=1 S VANCOMYCIN 1 S OXACILLIN TISHA <=0.25 S RIFAMPIN <=1 S AMPICILLIN/SULBACTAM <=8/4 S MEROPENEM <=1 S PENICILLIN 8 Yahir TRIMETHOPRIM/SUFLAMETHOXAZOLE <=2/38 S <=0.5/9.5 S ASSESSMENT: Right great toe diabetic ulcer with osteomyelitis, status post amputation. Infection with methicillin susceptible Staphylococcus aureus. Leukocytosis. Cellulitis. Diabetes mellitus. PLAN: Patient can be discharged to home on Bactrim p.o. b.i.d. x 10 days when ready to be discharge. Prescription was written. This case was reviewed and discussed with my supervising physician and the above assessment and plan was formulated and agreed upon. ATTESTATION BY PHYSICIAN I have seen and examined the patient. I reviewed the documentation, medical decision making, and treatment plan as noted by the mid-level provider above. I agree with the findings and plan of care. MEREDITH HARRIS MD, [facility] Feb 02, 2025 14:08
--- NOTE | 2025-02-02 16:34 | NUR ---
DC PLAN PATIENT SELF PAY HOME LESS DECLINED GOING TO INTERMEDIATE. ADMIN APPROVED 2 WOUND HEALING VISITS NURSING COMMUNICATION PLACED WITH [phone] TO CALL FOR APPOINTMENT ON DC. ALSO TO TEACH PATIENT WOUND CARE AND SEND HOME WITH EXTRA SUPPLIES. STILL PENDING DR Carrasquillo FOR ISHMAEL RECOMMENDATIONS. WILL USE CRUTCHES ON DC. Addendum: 02/02/25 at 1636 by VANDA TO RN CM Amended: Links added.
[2025-02-03] VITALS: BP 144/80; PULSE 85; RESP 18; TEMP 97.8
[2025-02-03 04:00] VITALS: BP 146/87; PULSE 77; RESP 17; TEMP 97.7
[2025-02-03 04:32] LABS: BASOPHILS # (AUTO) 0.07 K/uL (0.00-0.20); BASOPHILS % (AUTO) 0.6 % (0.0-5.0); EOSINOPHILS # (AUTO) 0.05 K/uL (0.00-0.70); EOSINOPHILS % (AUTO) 0.5 % (0.0-8.0); HEMATOCRIT 41.1 % (42-54); IMMATURE GRANULOCYTE ABSOLUTE 0.04 K/uL (0-1); MEAN CORPUSCULAR HEMOGLOBIN 29.8 pg (27.0-33.0); MEAN CORPUSCULAR HGB CONC 33.3 g/dL (32.0-36.0); MEAN CORPUSCULAR VOLUME 89.3 fL (79-99); MONOCYTES # (AUTO) 0.6 K/uL (0.1-1.0); MONOCYTES % (AUTO) 5.7 % (3.0-13.0); NEUTROPHILS # (AUTO) 8.2 K/uL (1.8-7.7); NEUTROPHILS % (AUTO) 74.8 % (40.0-77.0); PLATELET COUNT (AUTO) 370 K/uL (130-400); RED CELL DISTRIBUTION WIDTH 12.7 % (11.0-15.5); WHITE BLOOD COUNT (AUTO) 10.9 K/uL (4.8-10.8)
[2025-02-03 05:00] LABS: ALBUMIN 1.8 g/dL (3.5-5.0); BILIRUBIN,TOTAL 0.3 mg/dL (0.2-1.0); CREATININE 1.2 mg/dL (0.5-1.3); TOTAL PROTEIN, SERUM 6.4 g/dL (6.0-8.3)
[2025-02-03 08:00] VITALS: BP 156/94; PULSE 90; RESP 17; TEMP 97.6
[2025-02-03 08:30] VITALS: O2SAT 96
--- NOTE | 2025-02-03 10:18 | PN ---
PROGRESS NOTE Date of Service: Feb 03, 2025 Time of Service: 10:15 SUBJECTIVE: This 54 years old male seen for follow-up on status post amputation of hallux right secondary to osteomyelitis. Postoperative day 3. Doing well no new complaints. REVIEW OF SYSTEMS CONSTITUTIONAL: Denies fever, chills, or fatigue. HEAD/FACE: No signs of trauma. EENT: Denies eye pain, blurred vision, double vision, or light sensitivity. RESPIRATORY: Denies shortness of breath, cough and wheezing most likely superimposed pneumonia. CARDIOVASCULAR: Denies chest pain, palpitation, syncope GASTROINTESTINAL/ABDOMINAL: Denies abdominal pain, constipation, diarrhea, nausea or vomiting GENITOURINARY: Denies dysuria or hematuria. MUSCULOSKELETAL: Denies joint pain, tenderness, or trauma. INTEGUMENTARY: Wound was examined sutures in place [place] drain has been removed no drainage mild erythema still present from the previous cellulitis. Improving. NEUROLOGICAL/PSYCH: Denies anxiety, depression, heat or cold intolerance. PHYSICAL EXAM EYES: Anicteric. Pupils equal and reactive. HENT: No oral thrush seen, moist Oral mucosa NECK: Supple, no JVD or thyromegaly. LUNGS: Coughing and wheezing congested. CARDIOVASCULAR: S1, S2 regular. No murmur heard. ABDOMEN: Soft, non tender, bowel sounds present, no organomegaly CENTRAL NERVOUS SYSTEM: Awake, alert, oriented x 3. No focal deficits. SKIN: Wound closed sutures in place some edema and erythema status post amputation no active drainage mild bleeding. Noted on the dressing. LYMPHATICS: No peripheral lymphadenopathy MUSCULOSKELETAL: No joint swelling, erythema or tenderness. EXTREMITIES: No cyanosis or clubbing BACK: No deformity, no pressure ulcer. GENITOURINARY: No dysuria or hematuria Vital Signs (last 8hr) Date Time Temp Pulse Resp B/P (MAP) Pulse Ox O2 Delivery O2 Flow Rate FiO2 02/03/25 08:00 97.5 90 17 156/94 99 Room Air 02/03/25 04:00 97.7 77 17 146/87 98 Room Air LABS: Laboratory: Test 02/03/25 05:19 02/03/25 04:19 Range/Units Whole Blood Glucose 95 # 70-110 MG/DL White Blood Count 10.9 H 4.8-10.8 K/uL Red Blood Count 4.60 4.50-6.20 MIL/uL Hemoglobin 13.7 L 14.0-18.0 g/dL Hematocrit 41.1 L 42-54 % Mean Corpuscular Volume 89.3 79-99 fL Mean Corpuscular Hemoglobin 29.8 27.0-33.0 pg Mean Corpuscular Hemoglobin Concent 33.3 32.0-36.0 g/dL Red Cell Distribution Width 12.7 11.0-15.5 % Platelet Count 370 130-400 K/uL Mean Platelet Volume 9.4 7.5-10.5 fL Immature Granulocyte % (Auto) 0.4 0-1 % Neutrophils (%) (Auto) 74.8 40.0-77.0 % Lymphocytes (%) (Auto) 18.0 L 21.0-51.0 % Monocytes (%) (Auto) 5.7 3.0-13.0 % Eosinophils (%) (Auto) 0.5 0.0-8.0 % Basophils (%) (Auto) 0.6 0.0-5.0 % Neutrophils # (Auto) 8.2 H 1.8-7.7 K/uL Lymphocytes # (Auto) 2.0 1.0-4.8 K/uL Monocytes # (Auto) 0.6 0.1-1.0 K/uL Eosinophils # (Auto) 0.05 0.00-0.70 K/uL Basophils # (Auto) 0.07 0.00-0.20 K/uL Absolute Immature Granulocyte (auto 0.04 0-1 K/uL Nucleated Red Blood Cells 0.0 0.0-0.19 % Sodium Level 141 136-145 mmol/L Potassium Level 4.0 3.5-5.1 mmol/L Chloride Level 106 101-111 mmol/L Carbon Dioxide Level 30 21-32 mmol/L Blood Urea Nitrogen 16 7-18 mg/dL Creatinine 1.2 0.5-1.3 mg/dL Glomerular Filtration Rate Calc 72 >90 mL/min Random Glucose 101 70-105 mg/dL Total Calcium 9.0 8.5-10.1 mg/dL Total Bilirubin 0.3 0.2-1.0 mg/dL Aspartate Amino Transf (AST/SGOT) 14 10-37 U/L Alanine Aminotransferase (ALT/SGPT) 22 12-78 U/L Alkaline Phosphatase 83 50-136 U/L Total Protein 6.4 6.0-8.3 g/dL Albumin 1.8 L 3.5-5.0 g/dL DIAGNOSTICS / RADIOLOGY: X-rays were noncontributory for bone changes at this point. MRI positive for osteomyelitis of the distal phalanx of the great toe right foot. ASSESSMENT: Diabetic foot infection hallux infection right foot. Osteomyelitis right foot great toe. Status post amputation of right foot great toe. PLAN: Continue dressings changes agree with the plan for oral antibiotics patient is homeless pending to be discharge at friend's house and follow up appointment of the [facility] with kristi visits. Patient recommended to be nonweightbearing continue with crutches. And we will follow up in one week at the [facility]. Is cleared to be discharged from the podiatry standpoint on oral antibiotics as recommended by Infectious Disease. IVONE PABLO DPM Feb 03, 2025 10:18
[2025-02-03 11:47] VITALS: BP 184/102; PULSE 83; RESP 18; TEMP 98.9
[2025-02-03 13:06] VITALS: BP 139/83; PULSE 93
--- NOTE | 2025-02-03 13:18 | DS ---
Discharge Summary Hospital Course Summary: Patient is a 54-year-old male with past medical history of diabetes, high cholesterol ,hypertension and medication noncompliance who presents to the ED for complaints of right great toe open wound which started 3 days ago. Patient stated that he noticed redness and swelling of the nail and he started applying Neosporin ointment for about 2 days and when he uncovered it days later, he noticed that it was swollen and was draining pus. Patient reports he has not been taking any medications for almost 8 months now and he has not been to a doctor as well.Patient denies any trauma,injury or insect bite on his right great toe.Patient also reports he has history of right great toe partial amputation. Patient denies pain at this time.Patient denies fever,chills,nausea and vomiting. 01/30/25: Lying in bed at the time of evaluation. Alert and oriented and in no obvious distress. Denies any fever, chills, nausea, vomiting or pain. Vital signs: T 98.4, P 90, R 18, BP 128/75, 96% on RA. Labs: Sodium 141, potassium 3.3 We will replace as per protocol, glucose 229, hemoglobin A1c 11.8, lactic acid 1.0, ammonia 40, BUN 18 , creatinine 1.1 A venous Doppler showed no evidence of deep venous thrombosis, x-ray of the right foot showed no acute displaced fracture or dislocation and arterial Doppler showed arteriosclerotic disease, abnormal monophasic arterial waveforms in the bilateral posterior tibial arteries, right anterior tibial and dorsalis pedis arteries with hyperemic flow. Consult was placed for Podiatry. Ordered MRI of the foot. Pe nding results. Patient is currently on Zosyn 3.375g q8hr . 01/31/25: Lying in bed at the time of evaluation. Alert and oriented and in no obvious distress. No acute over night events reported. Denies any fever, chills, nausea, vomiting or pain. Vital signs were unremarkable . Labs : WBC 11 down from 12.3 yesterday, Potassium 3.3, will replace as per protocol. MRI of the right foot showed findings suggestive of osteomyelitis in the first distal phalanx of the right foot. Patient has been seen by Dr Rose. Scheduled an amputation of the right great toe. 02/01/25: Lying in bed at the time of evaluation. Alert and oriented and in no obvious distress. No acute over night events reported. Patient is status post amputation of the right hallux at the metatarsophalangeal joint level by Dr Rose. Post op day 1. Denies any fever, chills, nausea, vomiting or pain. Vital signs were unremarkable. Labs : WBC 13 from 11 yesterday. Patients blood glucose was in the 400's last night. Changed from low dose to high dose sliding scale. Increased Glargine to 30 units SC HS. Will continue to monitor. Patients BP was elevated 171/85. Continue on Hydralazine 10 units IV as ordered. Added Amlodipine 5mg daily to schedule. Physical therapy to evaluate and treat. Consult was also placed for Infectious disease. Pending their recommendations. 02/02/25: Lying in bed at the time of evaluation. Alert and oriented and in no obvious distress. No acute over night events reported. Patient is status post amputation of the right hallux at the metatarsophalangeal joint level by Dr Rose. Post op day 2. Denies any fever, chills, nausea, vomiting or pain. Vital signs were unremarkable. WBC is down to 11.3 from 13 yesterday. Blood glucose this morning was 87 and BP 155/89. Patient is ambulating around the unit in clutches with assistance of PT. Infectious disease is following. Pending their recommendations as per discharge. Will continue to monitor. 02/03/2025 - today's date is day 3 postop. Patient denies any active symptoms except pain at the surgical area, informed to take the pain medication as needed. Patient is currently hemodynamically stable and labs WBC down to 10.9 a nd other labs are normal. . Infectious disease recommended Bactrim for 10 days and written a script. Podiatry also cleared the patient for discharge and advised him to use crutches. Patient is deemed stable for discharge . Printing Screen Assembler(s): Infectious Disease, Podiatry Procedure(s): PATIENT: DAMION VENTURA MR#: [id number] : 1970 SEX: M AGE: 54 LOCATION: [facility] ORDER STATUS: ADM IN REPORT#: [id number] SERVICE 3 REASON: Rule out osteomyelitis of the great toe right foot ORDERING PHYSICIAN: IVONE ROSE DPM PROCEDURE: FT RT WWO - MR FOOT RIGHT WWO MR FOOT RIGHT WWO HISTORY: Osteomyelitis of great toe COMPARISON: None TECHNIQUE: MRI of the right foot was performed utilizing multiple pulse sequences in axial, coronal and sagittal planes. Patient was given 16 cc of Omniscan through intravenous route. FINDINGS: Abnormal increased signal intensity is seen involving the first distal phalanx suggestive of osteomyelitis. Adjacent cellulitis changes are seen. IMPRESSION: 1. Abnormal increased signal intensity is seen involving the first distal phalanx suggestive of osteomyelitis. Adjacent cellulitis changes are seen. DICTATED BY: SHAWN SPEAR MD DATE: 01/30/25 142 ELECTRONICALLY SIGNED BY: SHAWN SPEAR MD DATE: 01/30/25 150 PATIENT: DAMION VENTURA MR#: [id number] : 1970 SEX: M AGE: 54 LOCATION: [facility] ORDER 46 STATUS: [facility] REPORT#: [id number] SERVICE 173 REASON: dvt ORDERING PHYSICIAN: SHIV KENNEY APRN PROCEDURE: VENOUS MARIFER - US VENOUS DOPPLER BILATERAL US VENOUS DOPPLER BILATERAL HISTORY: Leg swelling COMPARISON: None TECHNIQUE: Bilateral lower extremity venous Doppler ultrasound study was performed. FINDINGS: The common femoral, femoral, popliteal, and posterior tibial veins are visualized. Normal flow with augmentation and compressibilities are demonstrated. The greater saphenous veins are also seen and grossly patent. There are bilateral inguinal lymph nodes with the largest in the right measured 4.6 cm on the left measuring 3.3 cm. IMPRESSION: 1. No evidence of deep venous thrombosis is seen. DICTATED BY: SHAWN SPEAR MD DATE: 01/29/251845 ELECTRONICALLY SIGNED BY: SHAWN SPEAR MD DATE: 01/29/251848 PATIENT: DAMION VENTURA MR#: [id number] : 1970 SEX: M AGE: 54 LOCATION: [facility] ORDER 46 STATUS: ADM IN REPORT#: [id number] SERVICE 35 REASON: congestion ORDERING PHYSICIAN: SHIV KENNEY BACK TENDER PAPER MACHINE PROCEDURE: CXR1VW - CHEST 1VW CHEST 1VW HISTORY: Congestion COMPARISON: None FINDINGS: A frontal projection of the chest was obtained. Mild bilateral pulmonary infiltrates are seen may be related to mild pulmonary vascular congestion with possible superimposed pneumonitis. The heart is borderline enlarged. Degenerative changes are seen. Aortic calcifications are seen. IMPRESSION: 1. Mild bilateral pulmonary infiltrates are seen may be related to mild pulmonary vascular congestion with possible superimposed pneumonitis. DICTATED BY: SHAWN SPEAR MD DATE: 01/29/251935 ELECTRONICALLY SIGNED BY: SHAWN SPEAR MD DATE: 01/29/251938 PATIENT: DAMION VENTURA MR#: [id number] : 1970 SEX: M AGE: 54 LOCATION: [facility] ORDER 46 STATUS: ADM IN [facility] REPORT#: [id number] SERVICE 35 REASON: dvt ORDERING PHYSICIAN: SHIV KENNEY BACK TENDER PAPER MACHINE PROCEDURE: ART B LE - US ARTERIAL BILAT LOW EXT DUPL US ARTERIAL BILAT LOW EXT DUPL HISTORY: Leg pain COMPARISON: None TECHNIQUE: Bilateral lower extremity arterial Doppler ultrasound study was performed. FINDINGS: Normal triphasic and biphasic arterial waveforms are noted in the common femoral, deep femoral, superficial femoral, popliteal arteries. Abnormal monophasic arterial waveforms are seen in the bilateral posterior tibial and right anterior tibia and dorsalis pedal arteries with hyperemic flow. Biphasic arterial waveform is seen in the left anterior tibial and dorsalis pedal arteries. On the right, the peak systolic velocity of the common femoral artery is 114 cm/s, the proximal femoral artery is 117 cm/s, the mid femoral artery is 134 cm/s, the distal femoral artery is 141 cm/s, the proximal popliteal artery is 158 cm/s, the distal popliteal artery is 140 cm/s, the anterior tibial artery is 112 cm/s, the posterior tibial artery artery is 141 cm/s,and the dorsalis pedal artery is 146 cm/s. IMPRESSION: 1. Atherosclerotic disease. 2. Abnormal monophasic arterial waveforms are seen in the bilateral posterior tibial and right anterior tibia and dorsalis pedal arteries with hyperemic flow. DICTATED BY: SHAWN SPEAR MD DATE: 01/29/251933 ELECTRONICALLY SIGNED BY: SHAWN SPEAR MD DATE: 01/29/251937 PATIENT: DAMION VENTURA MR#: [id number] : 1970 SEX: M AGE: 54 LOCATION: [facility] ORDER 1630 STATUS: ADM IN REPORT#: [id number] SERVICE [id number] REASON: osteo ORDERING PHYSICIAN: DANIEL WILKINS MD PROCEDURE: TOES RT - TOE(S) 2+VWS RT TOE(S) 2+VWS RT HISTORY: Osteo COMPARISON: None TECHNIQUE: 3 images of the right great toe were obtained. FINDINGS: There is no acute displaced fracture or dislocation. There is soft tissue swelling. Evaluation for osteomyelitis is limited with radiographs. Degenerative changes are seen. IMPRESSION: 1. Findings as described above. DICTATED BY: SHAWN SPEAR MD DATE: 01/29/251927 ELECTRONICALLY SIGNED BY: SHAWN SPEAR MD DATE: 01/29/251930 Assessment/Plan: ASSESSMENT: s/p Amputation of Right Hallux by Dr Rose on 01/31/25 Right osteomyelitis as per MRI on 01/31/25 POA Infected right great toe wound ulcer POA Uncontrolled hypertension POA Hyperglycemia secondary to uncontrolled diabetes POA Normocytic normochromic anemia POA hyponatremia due to hyperglycemia POA Acute kidney injury POA Hypokalemia POA Nicotine dependence POA Positive cocaine use POA Medication noncompliance POA Hyperlipidemia POA Discharge Instructions: Take all the medications as prescribed Take full course of Bactrim and do not stop even if you feel better ,given by the Infectious Disease Wound care instructions and dressing changes should be followed regularly Follow up with Podiatry in 1 week Follow up with Infectious Disease in 1 week Follow up with primary in 1 week Home Medications: Reported Medications Omeprazole (Omeprazole) 10 Mg Capsule., 1 CAP PO DAILY for 30 Days, #30 CAP 0 Refills 01/30/25 Continued Medications: Omeprazole (Omeprazole) 10 Mg Capsule. 1 CAP PO DAILY for 30 Days, #30 CAP 0 Refills Time spent arranging discharge: 1-30 minutes ATTESTATION BY PHYSICIAN I have seen and examined the patient. I reviewed the documentation, medical decision making, and treatment plan as noted by the resident provider above. I agree with the findings and plan of care. Yordy King MD, KEERTI K MD Feb 03, 2025 13:18
[2025-02-03] MEDS ORDERED: IBUP-2784 PO (13:20)
--- NOTE | 2025-02-03 16:02 | NUR ---
PATIENT DISCHARGED PERIPHERAL IV REMOVED. CATHETER INTACT. DISCHARGE INSTRUCTIONS GIVEN. PRESCRIPTIONS GIVEN. PATIENT AWARE TO F/U WITH DR. PABLO, [facility]. PATIENT AWARE OF APPROVED VISIT WITH [facility]. PHONE NUMBERS PROVIDED. EXTRA SUPPLIES GIVEN TO PATIENT. ALL QUESTIONS ANSWERED.
== END 2025-02-03 16:25 | disposition home or self-care (01) | DRG 617 ==
LOC: EDH 15:47 → EDHIP 15:48 → UNDOADMIN 17:36 → EDHIP 17:36 → 4BH 01-30 14:24
PROVIDERS: ADMIT Internal Medicine; ATTEND Internal Medicine
PROC: 0Y6P0Z0 Detachment at Right 1st Toe, Complete, Open Approach (ICD-10-PCS; principal; 2025-01-31 11:00)
DX: E11.69 Type 2 diabetes mellitus with other specified complication (principal); E87.1 Hypo-osmolality and hyponatremia; M86.8X7 Other osteomyelitis, ankle and foot; L97.518 Non-pressure chronic ulcer of other part of right foot with other specified severity; L03.031 Cellulitis of right toe; N17.9 Acute kidney failure, unspecified; D64.9 Anemia, unspecified; E11.65 Type 2 diabetes mellitus with hyperglycemia; I10 Essential (primary) hypertension; E11.621 Type 2 diabetes mellitus with foot ulcer; E11.628 Type 2 diabetes mellitus with other skin complications; E78.00 Pure hypercholesterolemia, unspecified; F14.90 Cocaine use, unspecified, uncomplicated; E87.6 Hypokalemia; F17.210 Nicotine dependence, cigarettes, uncomplicated; Z89.412 Acquired absence of left great toe; Z91.148 Patient's other noncompliance with medication regimen for other reason
CPT/HCPCS: 36415; 71045; 73660; 73720; 80048; 80053; 80076; 80305; 81001; 82140; 82150; 82550; 82947; 82948; 83036; 83605; 83690; 83735; 83880; 84145; 85025; 85610; 85651; 85730; 87070; 87076; 87086; 87186; 87804; 93005; 93925; 93970; 99285; G0378; J0360; J1100; J1644; J1815; J1885; J2003; J2250; J2270; J2405; J2543; J2704; J3010; J3370; J3475; J3490; A4215; A4216; A4221; A4222; A4223; A4649; A4663; A9575; J0665

== ENCOUNTER → 2025-02-07 | Outpatient (CLI) | payer SELFPAY ==
[~2025-02-07] MED LIST: IBUP-2784 PO; OMEP10CA5 PO
== END | disposition home or self-care (01) ==
LOC: WHH 08:58
PROVIDERS: ATTEND Podiatrist Foot & Ankle Surgery
DX: T87.81 Dehiscence of amputation stump (principal); E11.69 Type 2 diabetes mellitus with other specified complication; M86.8X7 Other osteomyelitis, ankle and foot; I10 Essential (primary) hypertension; E78.5 Hyperlipidemia, unspecified; F17.210 Nicotine dependence, cigarettes, uncomplicated; Y83.5 Amputation of limb(s) as the cause of abnormal reaction of the patient, or of later complication, without mention of misadventure at the time of the procedure
CPT/HCPCS: 99215; A4450

== ENCOUNTER → 2025-02-14 | Outpatient (CLI) | payer SELFPAY | END | disposition home or self-care (01) | LOC: WHH 08:27 | PROVIDERS: ATTEND Podiatrist Foot & Ankle Surgery | DX: T87.81 Dehiscence of amputation stump (principal); E11.69 Type 2 diabetes mellitus with other specified complication; M86.8X7 Other osteomyelitis, ankle and foot; E78.00 Pure hypercholesterolemia, unspecified; I10 Essential (primary) hypertension; E78.5 Hyperlipidemia, unspecified; F17.210 Nicotine dependence, cigarettes, uncomplicated; Y83.5 Amputation of limb(s) as the cause of abnormal reaction of the patient, or of later complication, without mention of misadventure at the time of the procedure | CPT/HCPCS: 99214; A6197 ×3; A4450 ==

== ENCOUNTER → 2025-02-28 | Outpatient (CLI) | payer SELFPAY | END | disposition home or self-care (01) | LOC: WHH 08:48 | PROVIDERS: ATTEND Podiatrist Foot & Ankle Surgery | DX: T87.81 Dehiscence of amputation stump (principal); E11.69 Type 2 diabetes mellitus with other specified complication; M86.8X7 Other osteomyelitis, ankle and foot; I10 Essential (primary) hypertension; E78.00 Pure hypercholesterolemia, unspecified; F17.210 Nicotine dependence, cigarettes, uncomplicated; Y83.5 Amputation of limb(s) as the cause of abnormal reaction of the patient, or of later complication, without mention of misadventure at the time of the procedure | CPT/HCPCS: 99214 ==